=== PATIENT | female | born 1980 | race Caucasian/White ===

== ENCOUNTER 2024-11-06 21:00 | Emergency (ER) | payer OTHER, SELFPAY ==
--- OUTSIDE RECORDS SUMMARY | 2024-11-06 21:02 | XMS_ITS | Encounter Summary ---
Author Name [facility] Organization [facility] [place] Address [address] [place] [id number] Selected Encounter This section includes the information on record at [place] for the Encounter. Date/Time Encounter Type Encounter Description Reason Provider Source May 27, 2024 02:01 PM [facility] ASSMT/REASSESSM ENT CAREGIVER SUPPORT PROGRAM ICD-10-CM Z65.9 Problem related to unspecified psychosocial circumstances [facility] Encounter Template Text not used by [place] Assessments - Encounter Diagnoses This section includes the primary and secondary diagnoses documented for the Encounter. Date/Time Primary/Secondary Diagnosis Diagnosis Name Provider Source May 28, 2024 08:14 AM PRIMARY Problem related to unspecified psychosocial circumstances [facility] Encounter Notes: All associated encounter notes This section contains the clinical notes associated to the Encounter. Date/Time Encounter Note(s) Provider Source May 27, 2024 02:01 PM CAREGIVER CERTIFIC ATE: [facility] CAREGIVER STANDARD TITLE: CAREGIVER CERTIFICATE DATE OF NOTE: MAY 27, 2024@14:01 ENTRY DATE: MAY 27, 2024@14:59:55 AUTHOR: STAR SILVESTRE EXP COSIGNER: URGENCY: STATUS: COMPLETED This Family Caregiver is enrolled in the [facility] Program of Comprehensive Assistance for Family Caregivers (PCAFC). While enrolled in the PCAFC, wellness contacts are required and must review the Veterans well-being, adequacy of personal care services being provided by the Family Caregiver(s), and the well-being of the Family Caregiver(s). This wellness contact will occur at a minimum of once every 120 days, and at least one visit must occur in the eligible Veterans home on an annual basis. Date of Visit: 05/28/24 Length of Visit: 50 minutes (15 minutes of which was spent waiting for dyad to connect to VVC) Dx treated: Problem Related to unspecified Psychosocial Circumstances Full Name (last, first): GENIE ANN Date of : October Method of contact: VVC/Telehealth Caregiver contact details: Best contact number for backup/emergency communication with caregiver (required): Caregiver location during visit: Home address: [address] [place] [address] [address] [facility] [id number] Others present for visit with caregivers consent: Name: Cuate Ann - Caregiver confirms location is private and safe for visit. Yes Visit conducted by clinical video telehealth: Yes Caregiver verbal consent obtained. Yes Location/emergency number confirmed. Yes CAREGIVER INFORMATION The caregiver is a: Primary Family Caregiver Caregiver is providing care to: Name: Cuate dinh Does the caregiver live with the [place]? Yes Have there been any changes to the caregivers address, telephone number or e-mail address? No Is caregivers contact information in electronic health record and the Caregiver Support Program IT system current? Yes CAREGIVER ASSESSMENT How has your physical/mental/emotional health been lately? Have there been any changes (falls, ER visits, hospitalizations)? Details: Caregiver reports stability with her health. She reports no falls, ER visits, or hospitalizations since last wellness. 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 What current challenges or stressors do you have, if any? Details: Caregiver previously reported stressor of her children who are each dealing with their own mental health and behavior/coming of age concerns has improved. She continues to support her daughter in preparing to have a baby in June. Caregiver stated she will be staying with her daughter off and on for the first 12 weeks. A new stressor is that the [place]'s grandpa and her father whom she has a strained relationship is on hospice and expected to soon. Because of the status of their relationship, she stated it's stressful to know if she should call or how to process his dying. Overall, Caregiver stated I feel like I am carrying everyone else's' bags, but I didn't pack a pair of socks or pack for my own needs. I know it sounds like caregiver burnout, but part of it is just being a and mom. (It's a challenge) to balance everything and motivate (my daughter and ). ERICKA REYES encouraged Caregiver to prioritize her own wellbeing and self-care. How are you coping with these issues? (discuss coping skills and support systems as appropriate, consider referral to mental health) Details: Caregiver continues to cope with her stress by practicing deep breathing, stretching, and going to the local gym to [id number]/week. This is my time. She notes working out gives her energy to do all the other things she needs to do, like cleaning their home. Caregiver stated going back to school is a coping strategy and something she feels she is doing just for herself. Do you feel comfortable and safe in your home environment? Yes What additional supports do you need to care for the [place], if any? (discuss respite services as appropriate) Details: Nothing specific identified. Caregiver inquired about the pause status with legacy participants. Discussed next steps are still unknown at this time, but continuing to do wellnesses every 120 days and remaining in the program through 03/25/25. How can the Caregiver Support Program support you? What goals/needs can we assist you with? Details: Caregiver denied needing support from CSP. I know what you offer and (I have the skills) I just need to implement them. It's exhausting to help him when I have to try in such a way that he doesn't know I'm helping. SUMMARY OF VISIT/ACTION TAKEN Details: Today this SW met with the and caregiver via [facility] for the wellness contact visit. She reports no recent falls, ER visits, or hospitalizations since last wellness. 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 Overall, Caregiver stated I feel like I am carrying everyone else's' bags, but I didn't pack a pair of socks or pack for my own needs. I know it sounds like caregiver burnout, but part of it is just being a and mom. (It's a challenge) to balance everything and motivate (my daughter and [place]). ERICKA REYES encouraged Caregiver to prioritize her own wellbeing and self-care. Caregiver denied needing support from CSP. Referrals: (check all that apply) __ CSL Education Calls __ [facility] __ Building Better Caregivers __ Caregivers FIRST __ Community Caregiver Support Group __ [place] Caregiver Support Group __ [facility] Mental [facility] __ Caregiver Health and Wellbeing Coaching __ Peer Support Mentoring __ Keila Text __ Financial planning assistance __ Legal assistance __ Advance Care Planning Forms __ Other: Respite /es/ [facility] Director And Professor Signed: 05/28/2024 08:15 [facility]
--- OUTSIDE RECORDS SUMMARY | 2024-11-06 21:03 | XMS_ITS | Clinical Summary ---
Author Organization [facility] Address [address] [address] Phone Care Team Providers Care Enterprise Project Manager Name Role Phone Unavailable Primary Care Provider Unavailabl e Allergies No known active allergies Medications Multiple Vitamin (MULTIVITAMIN) tablet Take 1 Tab by mouth one time a day. Active Camphor (JOINTFLEX EX) Apply topically. Active acetaminophen (TYLENOL) 325 MG tablet Take 650 mg by mouth every six hours as needed for Pain. Limit acetaminophen to 4000 mg per day from all sources. Active ibuprofen (MOTRIN) 800 MG tablet Take 800 mg by mouth every eight hours as needed for Pain. Administer with food. Active Social History Tobacco Use Types Packs/Day Years Used Date Smoking Tobacco: Never Smokeless Tobacco: Never Alcohol Use Standard Drinks/Week Comments No 0 (1 standard drink = 0.6 oz pur e alcohol) Comments No Sex and Gender Information Value Date Recorded Sex Assigned at Not on file Legal Sex Female 1:45 PM CDT Gender Identity Not on file Sexual Orientation Not on file Obstetrics History Last Filed Vital Signs Vital Sign Reading Time Taken Comments Blood Pressure 137/97 03/28/2017 11:10 AM CDT Pulse 89 03/28/2017 11:10 AM CDT Temperature 36.8 C (98.2 F) 03/28/2017 11:10 AM CDT Respiratory Rate 16 03/28/2017 11:10 AM CDT Oxygen Saturation 97% 03/28/2017 11:10 AM CDT Inhaled Oxygen Concentration - - Weight 72.6 kg (160 lb) 03/28/2017 11:10 AM CDT Height 165.1 cm (5' 5) 03/28/2017 11:10 AM CDT Body Mass Index 26.63 03/28/2017 11:10 AM CDT Plan of Treatment Not on file Insurance [facility] [place] [address] [facility]
--- OUTSIDE RECORDS SUMMARY | 2024-11-06 21:03 | XMS_ITS | Clinical Summary ---
Author Organization [facility] Address [address] [place] [id number] Care Team Providers Care Tree Doctor Name Role Phone No Ref-Primary, Physician Primary Care Provider Kim Peralta CN Unavailable Leta Valadez PA-C Unavailable Rubi Erickson PA-C Unavailable [phone] Allergies No known active allergies Medications aspirin-acetamin ophen-caffeine (EXCEDRIN MIGRAINE) 250-250-65 MG tablet Take 2 tablets by mouth Active rizatriptan (MAXALT-REMEDIAL PROJECT MANAGER) 10 MG ODTIndications:M igraine without aura and without status migrainosus, not intractable Take 1 tablet (10 mg) by mouth at onset of headache for migraine May repeat in 2 hours. Max 3 tablets/24 hours. 10 tablet 1 4 Active progesterone (PROMETRIUM) 100 MG capsuleIndicatio ns:Perimenopause Take 1 capsule (100 mg) by mouth at bedtime 60 capsule 4 4 Active cyclobenzaprine (FLEXERIL) 10 MG tabletIndication s:Neck pain TAKE 1 TABLET BY MOUTH 3 TIMES DAILY NEEDED FOR MUSCLE SPASMS 30 tablet 4 Active Active Problems No known active problems Immunizations Immunization Administration Dates Next Due TDAP (Adacel,Boostrix) 12/24/2022 Family History Medical History Relation Comments Colon Cancer Father Breast Cancer Mother Relation Status Comments Father Mother Social History Tobacco Use Types Packs/Day Years Used Date Smoking Tobacco: Never Passive Smoke Exposure: Never Smokeless Tobacco: Never Tobacco Cessation:Counseling Given: No Alcohol Use Standard Drinks/Week Comments Not Currently 0 (1 standard drink = 0.6 oz pur e alcohol) PHQ-2 Answer Date Recorded PHQ-2 Score 0 08/31/2023 Adolescent Education Answer Date Record ed Getting School Help Needed Not on file 03/18 Food Insecurity Answer Date Recorded Within the past 12 months, d id you worry that your food would run out before you got money to buy more? No 08/15/2023 Within the past 12 months, d id the food you bought just not last and you didn t have money to get more? No 08/15/2023 Housing Stability Answer Date Recorded Do you have housing? (Radha g is defined as stable permanent housing and does not include staying outside in a car, in a tent, in an abandoned building, in an overnight penitentiary, or couch-surfing.) Yes 08/15/2023 Are you worried about losing your housing? No 08/15/2023 Financial Resource Strain Answer Date R ecorded Within the past 12 months, h ave you or your family members you live with been unable to get utilities (heat, electricity) when it was really needed? No 08/15/2023 Transportation Needs Answer Date Record ed Within the past 12 months, h as lack of transportation kept you from medical appointments, getting your medicines, non-medical meetings or appointments, work, or from getting things that you need? No 08/15/2023 Comments No Sex and Gender Information Value Date Recorded Sex Assigned at Not on file Legal Sex Female 1:12 PM SAUSAGE TIER Gender Identity Not on file Sexual Orientation Not on file Last Filed Vital Signs Vital Sign Reading Time Taken Comments Blood Pressure 128/88 09/12/2023 1:54 PM CDT Pulse 77 09/12/2023 1:54 PM CDT Temperature 36.6 C (97.9 F) 08/15/2023 4:35 PM SAUSAGE TIER Respiratory Rate 16 08/15/2023 4:35 PM SAUSAGE TIER Oxygen Saturation 98% 09/12/2023 1:54 PM CDT Inhaled Oxygen Concentration - - Weight 88 kg (194 lb) 09/12/2023 1:54 PM CDT Height 165.1 cm (5' 5) 09/12/2023 1:54 PM CDT Body Mass Index 32.28 09/12/2023 1:54 PM CDT Plan of Treatment Health Maintenance Due Date Last Done Comments ADVANCE CARE PLANNING 1982 ANNUAL REVIEW OF HM ORDERS 1982 HIV SCREENING 1997 HEPATITIS C SCREENING 2000 HEPATITIS B IMMUNIZATION (1 of 3 - 19+ 3-dose series) 2001 COVID-19 Vaccine (2 - 2023-2 5 season) 2024 12/17/2020 PHQ-2 (once per calendar year) 2024 08/31/2023, 08/31/2023, 08/15/2023 YEARLY PREVENTIVE VISIT 08/30/2024 08/31/2023 INFLUENZA VACCINE (Season Ended) 2025 MAMMO SCREENING 08/01/2025 08/01/2023 DIABETES SCREENING 08/30/2026 08/31/2023 HPV TEST 08/30/2028 08/31/2023 LIPID 08/30/2028 08/31/2023 PAP 08/30/2028 08/31/2023, 09/15/2005 ZOSTER IMMUNIZATION (1 of 2) 2032 DTAP/TDAP/TD IMMUNIZATION (2 - Td or Tdap) 12/24/2032 12/24/2022 HPV IMMUNIZATION Aged Out No longer e ligible based on patient's age to complete this topic MENINGITIS IMMUNIZATION Aged Out No l onger eligible based on patient's age to complete this topic Pneumococcal Vaccine: Pediatrics (0 to 5 Years) and At-Risk Patients (6 to 49 Years) Aged Out No longer eligible b ased on patient's age to complete this topic Procedures Procedure Name Priority Date/Time Associated Diagnosis Comments COMPREHENSIVE METABOLIC PANEL Routine 08/31/2023 4:08 PM SAUSAGE TIER Annual physical exam LIPID REFLEX TO DIRECT LDL PANEL Routine 08/31/2023 4:08 PM SAUSAGE TIER Annual physical exam GYNECOLOGIC CYTOLOGY Routine 08/31/2023 3:47 PM SAUSAGE TIER Cervical cancer screening HPV HIGH RISK TYPES DNA CERVICAL Routine 08/31/2023 3:47 PM SAUSAGE TIER Cervical cancer screening MA SCREENING BILATERAL W/ DAVID Routine 08/01/2023 11:22 AM SAUSAGE TIER Visit for screening mammogram from Last 3 Months or Most Recently Relevant to Health Maintenance Results * (ABNORMAL) Lipid panel reflex to direct LDL Non-fasting (08/31/2023 4:08 PM SAUSAGE TIER) Cholesterol 170 <200 mg/dL 09/01/2023 3:44 PM SAUSAGE TIER [facility] Triglycerides 160(H) <150 mg/dL 09/01/2023 3:44 PM SAUSAGE TIER [facility] Direct Measure HDL 53 >=50 mg/dL 09/01/2023 3:44 PM SAUSAGE TIER [facility] LDL Cholesterol Calculated 85 <=100 mg/dL 09/01/2023 3:44 PM SAUSAGE TIER [facility] Non HDL Cholesterol 117 <130 mg/dL 09/01/2023 3:44 PM SAUSAGE TIER [facility] Patient Fasting > 8hrs? No 09/01/2023 3:44 PM SAUSAGE TIER [facility] Blood BLOOD SPECIMEN / Unknown Venipuncture / Unknown 08/31/2023 4:08 PM SAUSAGE TIER 08/31/2023 4:08 PM SAUSAGE TIER Narrative [facility] - 09/01/2023 3:44 PM SAUSAGE TIER Cholesterol Desirable: <200 mg/dL Triglycerides Normal: Less than 150 mg/dL Borderline High: 150-199 mg/dL High: 200-499 mg/dL Very High: Greater than or equal to 500 mg/dL Direct Measure HDL Female: Greater than or equal to 50 mg/dL Male: Greater than or equal to 40 mg/dL LDL Cholesterol Desirable: <100mg/dL Above Desirable: 100-129 mg/dL Borderline High: 130-159 mg/dL High: 160-189 mg/dL Very High: >= 190 mg/dL Non HDL Cholesterol Desirable: 130 mg/dL Above Desirable: 130-159 mg/dL Borderline High: 160-189 mg/dL High: 190-219 mg/dL Very High: Greater than or equal to 220 mg/dL us Kim Peralta [facility] - BLOOD ORDERABLES Final Result [facility] [address] [facility], [address] [place] [address], [facility] [phone] * Comprehensive metabolic panel (BMP + Alb, Alk Phos, ALT, AST, Total. Bili, TP) (08/31/2023 4:08 PM SAUSAGE TIER) Sodium 139 135 - 145 mmol/L 09/01/2023 3:44 PM SAUSAGE TIER [facility] Comment:Reference intervals for this test were updated on 03/21/2023 to more accurately reflect our healthy population. There may be differences in the flagging of prior results with similar values performed with this method. Interpretation of those prior results can be made in the context of the updated reference intervals. Potassium 4.2 3.4 - 5.3 mmol/L 09/01/2023 3:44 PM SAUSAGE TIER [facility] Carbon Dioxide (CO2) 25 22 - 29 mmol/L 09/01/2023 3:44 PM SAUSAGE TIER [facility] Anion Gap 10 7 - 15 mmol/L 09/01/2023 3:44 PM SAUSAGE TIER [facility] Urea Nitrogen 19.7 6.0 - 20.0 mg/dL 09/01/2023 3:44 PM SAUSAGE TIER [facility] Creatinine 0.82 0.51 - 0.95 mg/dL 09/01/2023 3:44 PM SAUSAGE TIER [facility] GFR Estimate >90 >60 mL/min/1. 73m2 09/01/2023 3:44 PM SAUSAGE TIER [facility] Calcium 9.7 8.6 - 10.0 mg/dL 09/01/2023 3:44 PM SAUSAGE TIER [facility] Chloride 104 98 - 107 mmol/L 09/01/2023 3:44 PM SAUSAGE TIER [facility] Glucose 85 70 - 99 mg/dL 09/01/2023 3:44 PM SAUSAGE TIER [facility] Alkaline Phosphatase 67 40 - 150 U/L 09/01/2023 3:44 PM SAUSAGE TIER [facility] Comment:Reference intervals for this test were updated on 05/09/2023 to more accurately reflect our healthy population. There may be differences in the flagging of prior results with similar values performed with this method. Interpretation of those prior results can be made in the context of the updated reference intervals. AST 21 0 - 45 U/L 09/01/2023 3:44 PM SAUSAGE TIER [facility] Comment:Reference intervals for this test were updated on 12/05/2022 to more accurately reflect our healthy population. There may be differences in the flagging of prior results with similar values performed with this method. Interpretation of those prior results can be made in the context of the updated reference intervals. ALT 20 0 - 50 U/L 09/01/2023 3:44 PM SAUSAGE TIER [facility] Comment:Reference intervals for this test were updated on 12/05/2022 to more accurately reflect our healthy population. There may be differences in the flagging of prior results with similar values performed with this method. Interpretation of those prior results can be made in the context of the updated reference intervals. Protein Total 7.0 6.4 - 8.3 g/dL 09/01/2023 3:44 PM SAUSAGE TIER [facility] Albumin 4.7 3.5 - 5.2 g/dL 09/01/2023 3:44 PM SAUSAGE TIER [facility] Bilirubin Total 0.3 <=1.2 mg/dL 09/01/2023 3:44 PM SAUSAGE TIER [facility] Blood BLOOD SPECIMEN / Unknown Venipuncture / Unknown 08/31/2023 4:08 PM SAUSAGE TIER 08/31/2023 4:08 PM SAUSAGE TIER us Kim Peralta [facility] - BLOOD ORDERABLES Final Result [facility] [address] [facility], [address] [id number] [phone] * Pap screen with HPV - recommended age 30 - 65 years (08/31/2023 3:47 PM SAUSAGE TIER) Interpretation Negative for Intraepithelial Lesion or Malignancy (NILM) 09/04/2023 12:58 PM CDT [facility] Comment Papanicolaou Test Limitations: Cervical cytology is a screening test with limited sensitivity, and regular screening is critical for cancer prevention. Pap tests are primarily effective for the diagnosis/prevent ion of squamous cell carcinoma, not adenocarcinoma or other cancers. 09/04/2023 12:58 PM CDT [facility] Specimen Adequacy Satisfactory for evaluation, endocervical/braden sformation zone component absent 09/04/2023 12:58 PM CDT [facility] Clinical Information none 09/04/2023 12:58 PM CDT [facility] Reflex Testing Yes regardless of result 09/04/2023 12:58 PM CDT [facility] Previous Abnormal? No 09/04/2023 12:58 PM CDT [facility] Performing Labs The technical component of this testing was completed at [facility] 09/04/2023 12:58 PM CDT [facility] Brushing CERVIX UTERI STRUCTURE / Unknown Non-blood Collection / Unknown 08/31/2023 3:47 PM SAUSAGE TIER 08/31/2023 4:37 PM SAUSAGE TIER us Kim Peralta CNM LAB - BEAKER AP Final R esult [facility] Specialty Lab [address] [facility], [address] [place] [phone] * HPV High Risk Types DNA Cervical (08/31/2023 3:47 PM SAUSAGE TIER) Other HR HPV Negative Negative 09/06/2023 2:30 PM CDT [facility] HPV16 DNA Negative Negative 09/06/2023 2:30 PM CDT [facility] HPV18 DNA Negative Negative 09/06/2023 2:30 PM CDT [facility] FINAL DIAGNOSIS This patient's sample is negative for HPV DNA. This test was developed and its performance characteristics determined by the [facility], [facility]. It has not been cleared or approved by the FDA. The laboratory is regulated under CLIA as qualified to perform high-complexity testing. This test is used for clinical purposes. It should not be regarded as investigational or for research. METHODOLOGY: The Baljinder Prashanth 4800 system uses automated extraction, simultaneous amplification of HPV (L1 region) and beta-globin, followed by real time detection of fluorescent labeled HPV and beta globin using specific oligonucleotide probes. The test specifically identifies types HPV 16 DNA and HPV 18 DNA while concurrently detecting the rest of the high risk types (31, 33, 35, 39, 45, 51, 52, 56, 58, 59, 66 or 68). COMMENTS: This test is not intended for use as a screening device for woman under age 30 with normal cervical cytology. Results should be correlated with cytologic and histologic findings. Close clinical followup is recommended. 09/06/2023 2:30 PM CDT [facility] Brushing CERVIX UTERI STRUCTURE / Unknown Non-blood Collection / Unknown 08/31/2023 3:47 PM SAUSAGE TIER 09/05/2023 8:24 AM CDT us Kim Peralta [facility] - BLOOD ORDERABLES Final Result [facility] Molecular Diagnostics [address] [facility], [address] [place] [phone] * MA Screen Bilateral w/David (08/01/2023 11:22 AM SAUSAGE TIER) Anatomical Region Laterality Modality Breast Bilateral Mammography Impressions 08/02/2023 7:32 AM SAUSAGE TIER IMPRESSION: ACR BI-RADS Category 1: Negative BREAST CANCER SCREENING RECOMMENDATION: Routine yearly mammography beginning at age 40 or as discussed with your provider. The results and recommendations of this examination will be communicated to the patient. Cesar Martinez MD Narrative 08/02/2023 7:32 AM SAUSAGE TIER BILATERAL FULL FIELD DIGITAL SCREENING MAMMOGRAM WITH TOMOSYNTHESIS Performed on: 08/01/23 No comparisons were made when reading this study. Technique: This study was evaluated with the assistance of Computer-Aided Detection. Breast Tomosynthesis was used in interpretation. Findings: The breasts are heterogeneously dense, which may obscure small masses. There is no radiographic evidence of malignancy. us Referred Self MD [facility] ORDERABLES [place] l Result from Last 3 Months or Most Recently Relevant to Health Maintenance Insurance [employer] [facility] Care Teams Tree Doctor Relationship Specialty Start Date End Date No Ref-Primary, Physician PCP - General 08/12/20 Kim Peralta CNM [address] [address] Assigned OBGYN Provider 09/08/23 Leta Valadez PA-C [address] [place] [address] Assigned PCP 09/16/23 Rubi Erickson, AUGUSTINE [address] [facility] [place] [address] Assigned Neuroscience Provider 10/17/23
--- OUTSIDE RECORDS SUMMARY | 2024-11-06 21:03 | XMS_ITS | Clinical Summary ---
Author Organization [email or web address] Address [address] [place] [id number] Care Team Providers Care Collar Tailor Name Role Phone Pcp, No Primary Care Provider Unavailabl e Allergies Active Allergy Reactions Criticality Noted Date Comments Latex *Unknown - Childhood Rxn 04/09/2021 Medications acetaminophen (TYLENOL) 325 mg tablet Take 650 mg by mouth every 6 hours if needed. Active progesterone micronized (PROMETRIUM) 100 mg capsule 4 Active aspirin-acetaminoph en-caffeine (EXCEDRIN EX STR) 250-250-65 mg Take 2 Tablets by mouth. Active rizatriptan (MAXALT MACHINIST) 10 mg disintegrating tabletIndications:M igraine syndrome Take 1 Tablet (10 mg) by mouth 2 times daily if needed for Migraine. Give at minimum 2hrs apart. Max Dose: 30mg per 24hrs. 10 Tablet 4 Active fluticasone (50 mcg per actuation) nasal solution (FLONASE)Indication s:Sinusitis, unspecified chronicity, unspecified location Inhale 2 Sprays in both nostrils once daily. 16 g 4 Active Active Problems No known active problems Immunizations Immunization Administration Dates Next Due Tdap 12/24/2022 Social History Tobacco Use Types Packs/Day Years Used Date Smoking Tobacco: Never Smokeless Tobacco: Never Alcohol Use Standard Drinks/Week Comments Yes 1 (1 standard drink = 0.6 oz pur e alcohol) Social Connections Answer Date Recorded Frequency of Communication with Friends and Fami ly Not on file 09/07/2021 Comments No Sex and Gender Information Value Date Recorded Sex Assigned at Not on file Legal Sex Female 4:06 PM [employer] Gender Identity Not on file Sexual Orientation Not on file Obstetrics History Last Filed Vital Signs Vital Sign Reading Time Taken Comments Blood Pressure 143/78 05/06/2024 10:01 AM [employer] Pulse 80 05/06/2024 10:01 AM [employer] Temperature 36.4 C (97.6 F) 05/06/2024 10:01 AM [employer] Respiratory Rate 14 05/06/2024 10:01 AM [employer] Oxygen Saturation 100% 05/06/2024 10:01 AM [employer] Inhaled Oxygen Concentration - - Weight 72.2 kg (159 lb 3.2 oz) 05/06/2024 10:01 AM [employer] Height - - Body Mass Index - - Plan of Treatment Health Maintenance Due Date Last Done Comments Depression screening for age 12+ 1994 HIV for age 15-65 1997 BMI (ht and wt on same day) for age 18+ 2000 Hepatitis C screening for ag e 18-79 2000 Pap test for age 21-65 11/19/2003 COVID-19 vaccine series ( season) 2024 12/17/2020 Influenza Vaccine (Season Ended) 2025 Tetanus booster 12/24/2032 12/24/2022 Tdap Completed 12/24/2022 Pneumococcal series for age 6-49 Aged Out No longer eligible based on patient's age to complete this topic Care Teams Collar Tailor Relationship Specialty Start Date End Date Pcp, No . PCP - General 05/25/23
--- OUTSIDE RECORDS SUMMARY | 2024-11-06 21:03 | XMS_ITS | Encounter Summary ---
Author Name [facility] Organization [facility] Address [address] [place] [address] Selected Encounter This section includes the information on record at [place] for the Encounter. Date/Time Encounter Type Encounter Description Reason Provider Source Aug 21, 2024 12:30 PM PSYCH DIAGNOSTIC EVALUATION [facility] ICD-10-CM Z65.9 Problem related to unspecified psychosocial circumstances STAR SILVESTRE E Encounter Template Text not used by [place] Assessments - Encounter Diagnoses This section includes the primary and secondary diagnoses documented for the Encounter. Date/Time Primary/Secondary Diagnosis Diagnosis Name Provider Source Aug 22, 2024 02:39 PM PRIMARY Problem related to unspecified psychosocial circumstances STAR SILVESTRE [facility] Encounter Notes: All associated encounter notes This section contains the clinical notes associated to the Encounter. Date/Time Encounter Note(s) Provider Source Aug 21, 2024 12:30 PM CAREGIVER CERTIFIC ATE: LOCAL TITLE: CSP [facility] WELLNESS CONTACT CAREGIVER STANDARD TITLE: CAREGIVER CERTIFICATE DATE OF NOTE: AUG 21, 2024@12:30 ENTRY DATE: AUG 21, 2024@15:34:14 AUTHOR: STAR SILVESTRE EXP COSIGNER: URGENCY: STATUS: COMPLETED Caregiver Support Program [facility] Wellness Contact Caregiver This Family Caregiver is enrolled in [facility] Program of Comprehensive Assistance for Family Caregivers ([facility]). While enrolled in [facility], wellness contacts review the 's well-being, adequacy of personal care services being provided by the Family Caregiver(s), and the well-being of the Family Caregiver(s). Wellness contacts occur at a minimum of once every 120 days, and at least one visit must occur in the eligible 's home on an annual basis. Date of visit: Jul Length of visit: 65 minutes Dx treated: Problem Related to unspecified Psychosocial Circumstances The Caregiver was identified using the following lott identifiers: Full Name: GENIE ANN Date of : [birth year] Full Address[address] [address] [place], [place] [address], [place] [address] Phone #: Email address: [email or web address] Is the above contact information in the electronic health record and the Caregiver Support Program IT system, correct? Yes Reason for contact: Routine (120-day contact) Method of contact: In-Home CAREGIVER INFORMATION The caregiver is a: Primary Family Caregiver Caregiver is providing care to: Name: Cuate Ann The caregiver lives with the [place]. CAREGIVER ASSESSMENT How has your physical/mental/emotional health been lately? Details: Caregiver continues to pursue her degree in social work online at [employer]. 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 Caregiver was proud of herself for making the [employer] last semester. She continues to support her daughter after she had a baby in June. Caregiver had stated the plan was to stay with her daughter off and on for the first 12 weeks. She notes it has transitioned to more of the baby staying with her for a few days and then with her daughter for a few days/or the Caregiver stays there a few days. She has had about a month off of work to assist her daughter, but returns to work this coming Monday. She notes her coworkers have been very supportive to her during her leave. Mentally, she reports her dad did end up passing away, as he was dying at time of last wellness. She notes talking to her mom more since her dad's , but it still being challenging to navigate given her poor relationship with his parents. Have you experienced any changes (falls, ER visits, hospitalizations) and/or any concerns? No What is most important to you about your health and overall well-being? Details: To be healthy and to be adaptable. What goals or needs can we assist you with? Details: None identified today. Are there training topics or resources that you would like to learn more about? Details: Caregiver expressed gratitude that she has been able to receive training through her work on de-escalation, self-care and work burnout. However, she notes wanting to know more about How to switch up (our everyday)? and ways in which she can understand his emotions and tips for being the buffer between her kids and the [place]. Discussed potential national for Caregivers training that may be coming in the future as well as a current group being offered, titled the [place] [employer]. Discussed option to consider couple's counseling offered through the [facility] as well. Caregiver expressed interest and understanding. Caregiver also wondered about memory strategies to assist the . Educated on the role of an OT with this, but not interested in pursuing at this time. Do you have any legal or financial planning concerns? No Do you feel comfortable and safe in your home environment? Yes Do you have a personalized respite plan? Yes - Self-guided Details: Focusing on her school work, practicing deep breathing, stretching, and going to the local gym to [id number]/week. See annual respite template below for more info. SCREENING TOOLS [employer] [place] Interview [employer] [place] Interview (Caregiver burden scale), copyright 1990 by Harsha Ivy and Chanel Ivy, with permission to use. ZBI Screening score (range 0-16): Score is 7, which reflects low caregiver burden (scores of less than 8). 1. Do you feel that because of the time you spend with your relative that you do not have enough time for yourself? Sometimes 2. Do you feel stressed between caring for your relative and trying to meet other responsibilities (work/family)? Sometimes 3. Do you feel strained when you are around your relative? Sometimes 4. Do you feel uncertain about what to do about your relative? Rarely [facility] Staff provided information on the following resources and support: - Caregiver Support Line (CSL) Education Calls SUMMARY AND PLAN OF SUPPORT: Today's wellness contact took place in home. Caregiver continues to pursue her degree in social work online at [employer]. 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 Caregiver was proud of herself for making the [employer] last semester. She continues to support her daughter after she had a baby in June. She reports wanting to know several topics and education. Discussed potential national for Caregivers training that may be coming in the future as well as a current group being offered, titled the [employer]. Discussed option to consider couple's counseling offered through the [facility] as well. Caregiver expressed interest and understanding. Caregiver also wondered about memory strategies to assist the [place]. Educated on the role of an OT with this, but not interested in pursuing at this time. Caregiver is enrolled in: ____X____ Program of Comprehensive Assistance for Family Caregivers Program of General Caregiver Support Services Additional individuals providing input include: [place] Other: Support services currently in place to assist caregiver with 's care: (check all that apply) Homemaker and Home Health Aide Care Non-skilled Home Respite Skilled Home Respite [place] [facility] Institutional Respite ([facility]) [facility] Res[facility] ([facility]) Home Based Primary Care In-Home Palliative Care/Hospice Other: Has caregiver completed the Caregiver Respite Tool? Yes ___X__ No Details: Caregiver's Respite Goals: Details: None indicated at this time. Respite Currently Utilized: SELF GUIDED: (Definition: Caregiver builds activities into their daily routine that they find meaningful and brings them aliyah.) Self-Guided Respite Currently Utilized: __X__ Yes ____ No Details: Focusing on her school work, practicing deep breathing, stretching, and going to the local gym to [id number]/week. See annual respite template below for more info. INFORMAL: (Definition: Unpaid care offered by friends, family, and neighbors, or others.) Informal Respite Currently Utilized: Yes __X__ No Details: FORMAL: (Definition: A provision of short-term relief by paid care services provided either in a healthcare institution or by an individual or agency in the home. Services including skilled, non-skilled, and rn charge level care.) Formal Respite Currently Utilized: Yes __X__ No Details: Respite Contingency Plan: Does the caregiver have a backup plan in the event planned informal or formal respite becomes unavailable? ____ Yes- Details: ____ No- Details: Action Taken: __X__ None ____ Follow up with Primary Care ____ Referral to: ____ Provided Community/Non-VA Respite Information Details: ____ Other: __X__ Caregiver Declined Formal Respite Referral at this time ____ Caregiver Requests Formal Respite Referral // STAR SILVESTRE Parachute Repairer Signed: 08/22/2024 14:48 STAR SILVESTRE [facility]
--- OUTSIDE RECORDS SUMMARY | 2024-11-06 21:03 | XMS_ITS | Continuity of Care Document ---
Author Name [facility] Organization [facility] Care Team Providers Care [place] Press Operator Name Role Phone [facility] Unavailable Unavailable Problems Combined list of problems from Department of Defense and Veterans Affairs facilities. It does not include entries that were removed or entered in error. Problem Status Onset Date Problem Type Date of Resolution Comments Source Adjustment disorder with anxiety Active 019 Condition Unknown Organization Abscess of vulva Active Condition Unkno wn Organization Body dysmorphic disorder Active Condition Unknown Organization Cellulitis Active Condition Unknown Organization Cyst of ovary Active Condition Unknown Organization Depressive disorder Active Condition Unknown Organization Enlarged uterus Active Condition Unknow n Organization Gastroesophageal reflux disease with esophagitis Active Condition Unknown Organization Generalized anxiety disorder Active Condition Unknown Organization Headaches Active Condition Unknown Organization Iron deficiency anemia Active Condition Unknown Organization Migraine Active Condition Unknown Organization Strabismus Active Condition Unknown Organization - Preventative1 Active Condition BMI: 27.8
PAP/H PV Co-Testin02/16/16 WNL, HPV Negative Unknown Organization COMMON COLD Active Condition DoD Gynecologic Services Prescription Of Contraceptive Agents Inactive Condition DoD visit for: administrative purpose Inactive Condition reviewed pt consult DoD VERTIGO Active Condition DoD abdominal pain in the central upper belly (epigastric) Inactive Condition Spoke wit h patient, pain improved but still present intermittently . U/S ordtered, f/u her after complete. DoD midback pain Active Condition 24 yo f emale with mid backand epigastric pain.Plan - DDx includes viral syndrome, PUD, emi wheeler tear, pancreatitis, splenomegaly secondary to mono, etc... Will check labs as below (in addition to TSH), and start on Aciphex. F/U is prn and depen DoD Cerv Pap (+) Low Grade Squamous Intraepithelial Lesion Active Condition DoD visit for: exam Inactive Condition DoD Cervical High Risk Human Papilloma Virus DNA Test Active Condition DoD Abnormal Pap Smear: ASCUS Favor Dysplasia Active Condition colpo done no bx done b/c - d/w dr. disla - as he did nob pap per pt acct in regards to lesion/polyp - pt prefers to not have bx now while and he agreed this was safe/okay - rec pp pap/colpo with bx and excision at that time.f/u ins DoD Pain in right wrist Active Condition DoD FINGER SPRAIN RIGHT INDEX FINGER MCP Inactive Condition DoD joint pain, localized in the right wrist Active Condition DoD pain in the hands Active Condition DoD cough Active Condition DoD abdominal pain in the right lower belly (RLQ) Active Condition DoD CONJUNCTIVITIS CHRONIC ALLERGIC Active Condition DoD ESOPHAGITIS CHRONIC REFLUX Active Condition DoD Preventive Medicine Establ. Patient Checkup Adult 18-39 Inactive Condition DoD DRY EYE SYNDROME Active Condition DoD PEDICULOSIS CAPITIS Inactive Condition DoD neck pain Active Condition DoD OTITIS MEDIA ACUTE SEROUS BOTH EARS Inactive Condition DoD DYSPAREUNIA Active Condition DoD WARTS PLANTAR Inactive Condition DoD excessive bleeding during period (menorrhagia) Active Condition DoD TRAPEZOID MUSCLE STRAIN Inactive Condition DoD DEPRESSION Active Condition DoD VAGINAL DISCHARGE Active Condition DoD ESOPHAGEAL REFLUX Active Condition DoD OVERWEIGHT Active Condition DoD CHRONIC SINUSITIS - MAXILLARY Active Condition DoD ALLERGIC RHINITIS Active Condition DoD ANKLE SPRAIN Inactive Condition DoD ANKLE SPRAIN RIGHT Inactive Condition Do D Uterine Enlargement Active Condition DoD OVARIAN CYST Active Condition DoD BODY DYSMORPHIC DISORDER Active Condition DoD Observation For Suspected Condition Inactive Condition DoD pelvic pain Active Condition DoD visit for: issue repeat prescription Inactive Condition DoD CYSTITIS ACUTE Inactive Condition DoD feelings of urinary urgency Active Condition DoD DYSMENORRHEA Active Condition DoD changed sexual interest (libido): decreased Active Condition DoD AMBLYOPIA Active Condition DoD STRABISMUS Active Condition DoD PREMENSTRUAL DISORDER Active Condition DoD Thyroid Function Tests Nonspecific Abnormal Findings Active Condition DoD ABNORMAL WEIGHT GAIN Active Condition DoD PHARYNGITIS Active Condition DoD GENERALIZED ANXIETY DISORDER Active Condition DoD FEMALE PELVIC PAIN Active Condition DoD visit for: preoperative exam Active Condition DoD visit for: contraceptive surveillance Inactive Condition DoD Outpatient Physician Consultation Active Condition DoD MIGRAINE HEADACHE Active Condition DoD vaginal pain Active Condition DoD NORMAL ROUTINE HISTORY AND PHYSICAL - Active Condition DoD FALSE LABOR AFTER 37 WEEKS GESTATION Active Condition DoD NORMAL CHECKUP - THIRD TRIMESTER Inactive Condition DoD DECR MOVE AFFECTING CARE OF MOTHER - ANTEPARTUM CONDIT Active Condition DoD GESTATION EDEMA ANTEPARTUM CONDITION / PRIOR COMPLIC DELIV Active Condition DoD visit for: administrative purpose Inactive Condition DoD visit for: exam high-risk Inactive Condition DoD PREG THREATENED BUCK LABOR - ANTEPART COND OR PRIOR COMP DEL Active Condition DoD Patient Counseling: Inquiry & Counseling Inactive Condition DoD Supervision Of Normal Inactive Condition DoD MARGINAL PLACENTA PREVIA - ANTEPARTUM CONDITION / COMPLIC Inactive Condition DoD visit for: exam based on ultrasound Active Condition DoD NORMAL CHECKUP - SECOND TRIMESTER Inactive Condition DoD heartburn Active Condition DoD Supervision Of Normal First Inactive Condition DoD HYPEREMESIS GRAVIDARUM - ANTEPARTUM COND OR PRIOR COMP DELIV Active Condition DoD PREG COMPLICATIONS: ANTEPARTUM COND OR PRIOR COMP DELIVERY Active Condition DoD Patient Education Inactive Condition [facility] SECONDARY AMENORRHEA Active Condition [facility] ROUTINE GYNECOLOGICAL EXAM WITH CERVICAL PAP SMEAR Inactive Condition [facility] Cervical Pap Smear Active Condition [facility] visit for: screening exam malignant neoplasm breast Inactive Condition DoD Test Negative Inactive Condition DoD Gynecologic Services Contraceptive Management Inactive Condition DoD FATIGUE Active Condition No recent lab work. will check cbc, cmp, tsh for screening and fatigue work up DoD MENORRHAGIA Active Condition increase d bleeing, improved since starting Molly.- continue to monitor- needs WWE, told her to schedule with [facility] or gynecology DoD MYALGIA AND MYOSITIS Active Condition pain all over back and in neck and across iliac crests. Does not have tenderpoints on exam to diagnoses fibromyalgia, but complaints are similar to FMS. - cont working out daily- maintain good hydration DoD HEADACHE SYNDROMES Inactive Condition d aily headaches with worsening. She is not sure if she has ever been on elavil in the past. Suspect multiple types of headaches: tension, chronic daily headache, possible migraine- start elavil 50mg qhs- start midrin prn DoD URINARY TRACT INFECTION Inactive Condition DoD Oral Contraceptives Inactive Condition will give the patient a trial of Molly to see if she tolerates it better than Ortho-tricycle n [facility] Other Physical Therapy Inactive Condition DoD UPPER RESPIRATORY INFECTION Inactive Condition Viral in appearance and history. Sudafed and SY DM ordered in [facility]. Increase rest and fluids and f/u if no improvement in 3-5 days and sooner if condition worsens. [facility] SPONTANEOUS - COMPLETE Active Condition doing well following miscarriage; now resolved clinically and pt stablequant dropping quickly; overall reviewed status; will repeat test/exam in 4 weekspt to come in if bleeding heavy/pain/fev er DoD abdominal pain Active Condition DoD bleeding during Inactive Condition [facility] Gynecologic Service Prescrip Of Contracept Agent - Repeat Rx Active Condition [facility] IRON DEFICIENCY ANEMIA Active Condition [facility] visit for: screening exam Inactive Condition [facility] SINUSITIS ACUTE Inactive Condition [facility] Contraceptives Inactive Condition DoD CERVICALGIA Active Condition DoD headache Inactive Condition Pt has chr onic history of head aches that are not relileved with her current meds, physical therapy, massage and stretching. Plan for change of NSAID, use naproxen rather than motrin. Plan for MRI of brain for eval of possible organic cause of head aches. 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 Hernadez, who is just starting a at [facility]. I spoke with Dr. Salgado in ER who says he is familiar with this type of lesion. I had her go to the emergency room so that she could be evaluated there, as my experie DoD CELLULITIS OF THE LEFT ARM Inactive Condition DoD Patient Counseling: Active Condition DoD anxiety Active Condition DoD Diagnosis: ICD-10-CM Z65.9 Problem related to unspecified psychosocial circumstances Active Diagnosis [facility] Medications Combined list of outpatient medications from Department of Defense and Veterans Affairs facilities.Medications provided include 1) outpatient medications from the last 15 months, and 2) patient-reported medications. Medication Details Route Status Patient Instructions Prescription Expires Prescription Number Last Dispense Date Ordering Provider Order Date Order Qty Source azithromyci n 250 mg oral tablet 0 total refill(s ) Discont inued 03/12/20182017 No Facilit y Access CYCLOBENZAP RINE HCL (CYCLOBENZA HARJEET HCL), 10 MG, TABLET, ORAL, [employer], 500 ea. BOTTLE Active [id number] 4 2023 30 Pharmac y Data Transac tion Service Facilit y CYCLOBENZAP RINE HCL (CYCLOBENZA HARJEET HCL), 10 MG, TABLET, ORAL, [employer], 500 ea. BOTTLE Active [id number] 4 2023 30 Pharmac y Data Transac tion Service Facilit y multivitami n adult, oral tablet 1 tabs, Oral, Daily, Take one tablet by mouth daily as vitamin suppleme ntation, # 30 tabs, 0 total refill(s ), Maintena nce Oral (given by mouth) Discont inued 07/23/20182018 30.0 [facility] [place] Probiotic + Colostrum Oral, Daily, 0 total refill(s ), Maintena nce Oral (given by mouth) Discont inued 05/08/20182017 [facility] [place] Probiotic Formula 1 cap, Oral, Daily, Take one capsule by mouth daily with food while taking antibiot ics to lessen GI upset, # 30 cap, 0 total refill(s ), Maintena nce Oral (given by mouth) Discont inued 07/23/20182018 30.0 [facility] [place] Progesteron e ([employer]) 100 CAPSULE in 1 BOTTLE Cancele d [id number] 4 [id number] : 2023 0 Pharmac y Data Transac tion Service Facilit y Progesteron e ([employer]) 100 CAPSULE in 1 BOTTLE Cancele d [id number] 4 [id number] : 2023 0 Pharmac y Data Transac tion Service Facilit y Progesteron e ([employer]) 100 CAPSULE in 1 BOTTLE Cancele d [id number] 4 [id number] : 2023 0 Pharmac y Data Transac tion Service Facilit y Progesteron e ([employer]) 100 CAPSULE in 1 BOTTLE Cancele d [id number] 4 [id number] : 2023 0 Pharmac y Data Transac tion Service Facilit y Progesteron e ([employer]) 100 CAPSULE in 1 BOTTLE Cancele d [id number] 4 [id number] : 2023 0 Pharmac y Data Transac tion Service Facilit y Progesteron e ([employer]) 100 CAPSULE in 1 BOTTLE Cancele d [id number] 4 [id number] : 2023 0 Pharmac y Data Transac tion Service Facilit y Progesteron e ([employer]) 100 CAPSULE in 1 BOTTLE Active [id number] 09/04/19 2 4 2023 26 Pharmac y Data Transac tion Service Facilit y Progesteron e ([employer]) 100 CAPSULE in 1 BOTTLE Active [id number] 09/28/19 2 4 2023 60 Pharmac y Data Transac tion Service Facilit y Progesteron e ([employer]) 100 CAPSULE in 1 BOTTLE Active [id number] 10/23/19 2 4 2023 60 Pharmac y Data Transac tion Service Facilit y RIZATRIPTAN (RIZATRIPTA N BENZOATE), 10 MG, TAB RAPDIS, ORAL, [employer], 9 ea. BLIST PACK Active [id number] 4 2023 10 Pharmac y Data Transac tion Service Facilit y Therapeutic Multiple Vitamins oral tablet 1 tabs, Oral, Daily, Take one tablet by mouth daily as vitamin suppleme ntation, # 90 tabs, 3 total refill(s ), [facility] Oral (given by mouth) Ordered 9 2018 90.0 [facility] [place] Topamax 25 mg oral tablet See Instruct ions, Take 1 tablet Orally Daily x 2-3 days then bid for headache s, # 60 tabs, 1 total refill(s ), [email or web address] dispense (Rx) Ordered 9 2018 60.0 [facility] [place] topiramate 25 mg oral capsule 1 cap, Oral, As Directed , 1 po QHS. Titrate up by 25mg every week. Michaela l adverse SE's discusse d., # 60 cap, 0 total refill(s ), [facility] pharmacy dispense (Rx) Oral (given by mouth) Discont inued 05/08/20182017 60.0 [facility] [place] Vitamin B Complex with C, Folic Acid, Iron and Probiotics oral capsule 1 cap, Oral, Daily, Take one capsule daily between meals to improve absorpti on, # 30 cap, 3 total refill(s ), [facility] pharmacy dispense (Rx) Oral (given by mouth) Ordered 2018 30.0 [facility] [place] Allergies, Adverse Reactions, Alerts Combined list of allergies from Department of Defense and Veterans Affairs facilities. It does not include entries that were removed or entered in error. Substance Category Reaction Severity Reaction type Status Date Reported Comments Source Latex Allergy to substance Unknown Unknown [facility] Allergies Drug allergy (disorder) active 6 [facility] Immunizations Combined list of available immunizations from the Department of Defense and Veterans Affairs facilities. Immunization Series Date Given Administered By Site Reaction Lot Number CVX Code Drug Rent Collector Status Comments Source COVID-19 vaccine, vector-nr, rS-Ad26, PF, 0.5 mL 2020 JEANNINEEVERETTE () Not Given COVID-19 vaccine, vector-nr , rS-Ad26, PF, 0.5 mL [facility] Results Combined list of recent chemistry, hematology and other laboratory results from Department of Defense and Veterans Affairs, ranging from 15 months to all on record, depending upon the facility. Order Name Results Value Reference Range Date Interpretation Specimen Comments Source Urinalysi s UA Bili Negative (04/30/18 10:59 AM) 04/30 N [facility] [place] Urinalysi s UA pH 5.0 *NA* (04/30/18 10:59 AM) 04/30 [facility] [place] Urinalysi s UA Protein Negative (04/30/18 10:59 AM) 04/30 N [facility] [place] Urinalysi s UA Appear Clear (04/30/18 10:59 AM) 04/30 N [facility] [place] Urinalysi s UA Micro Ind? Indicated *ABN* (04/30/18 10:59 AM) 04/30 A [facility] [place] Urinalysi s UA Blood Small *ABN* (04/30/18 10:59 AM) 04/30 A [facility] [place] Urinalysi s UA Color Lt. Yellow (04/30/18 10:59 AM) 04/30 N [facility] [place] Urinalysi s UA Leuk Esterase Negative (04/30/18 10:59 AM) 04/30 N [facility] [place] Urinalysi s UA Ketones Negative (04/30/18 10:59 AM) 04/30 N [facility] [place] Urinalysi s UA Nitrite Negative (04/30/18 10:59 AM) 04/30 N [facility] [place] Urinalysi s UA Glucose Negative (04/30/18 10:59 AM) 04/30 N [facility] [place] Urinalysi s UA Urobilinoge n 0.2 (04/30/18 10:59 AM) 04/30 N [facility] [place] Urinalysi s UA Spec [place] 1.025 *NA* (04/30/18 10:59 AM) 04/30 [facility] [place] Urinalysi s UA Epi Squam 2-5 *ABN* (04/30/18 10:59 AM) 04/30 A [facility] [place] Urinalysi s UA WBC None Seen (04/30/18 10:59 AM) 04/30 N [facility] [place] Urinalysi s UA Bacteria Few *ABN* (04/30/18 10:59 AM) 04/30 A [facility] [place] Urinalysi s UA RBC 2-5 *ABN* (04/30/18 10:59 AM) 04/30 A [facility] [place] Infectiou s Disease Strep A, Rapid Neg (04/16/18 9:35 AM) 04/16 N 0125A-AM Jerry Rios Vital Signs Combined list of inpatient and outpatient Vital Signs from Department of Defense and Veterans Affairs, ranging from 12 months to all on record, depending upon the facility. Vital Sign Value Date Comments Source Systolic Blood Pressure 117 mm[Hg] 04/16/2018 16:09:00 [facility] Diastolic Blood Pressure 79 mm[Hg] 04/16/2018 16:09:00 [facility] Respiratory Rate 16 br/min 04/16/2018 16:09:00 [facility] Temperature Tympanic 36.6 Cata 04/16/2018 16:09:00 [facility] Peripheral Pulse Rate 68 bpm 04/16/2018 16:09:00 [facility] Mean Arterial Pressure, Calc 92 mm[Hg] 04/16/2018 16:09:00 [facility] Mean Arterial Pressure, Calc 99 mm[Hg] 03/13/2018 20:35:00 [facility] Systolic Blood Pressure 126 mm[Hg] 03/13/2018 20:35:00 [facility] Diastolic Blood Pressure 85 mm[Hg] 03/13/2018 20:35:00 [facility] Respiratory Rate 16 br/min 03/13/2018 20:35:00 [facility] Temperature Tympanic 36.6 Cata 03/13/2018 20:35:00 [facility] Peripheral Pulse Rate 62 bpm 03/13/2018 20:35:00 [facility] Peripheral Pulse Rate 66 bpm 04/19/2018 16:55:00 [facility] [place] Mean Arterial Pressure, Calc 90 mm[Hg] 04/19/2018 16:55:00 [facility] Jj palacios Temperature Tympanic 36.4 Cata 04/19/2018 16:55:00 [facility] [place] Systolic Blood Pressure 112 mm[Hg] 04/19/2018 16:55:00 [facility] [place] Diastolic Blood Pressure 79 mm[Hg] 04/19/2018 16:55:00 [facility] [place] Systolic Blood Pressure 126 mm[Hg] 03/12/2018 17:25:00 [facility] Diastolic Blood Pressure 85 mm[Hg] 03/12/2018 17:25:00 [facility] Respiratory Rate 15 br/min 03/12/2018 17:25:00 [facility] Mean Arterial Pressure, Calc 99 mm[Hg] 03/12/2018 17:25:00 [facility] Peripheral Pulse Rate 75 bpm 03/12/2018 17:25:00 [facility] Temperature Tympanic 36.5 Cata 05/08/2018 22:43:00 [facility] Peripheral Pulse Rate 61 bpm 05/08/2018 22:43:00 [facility] Respiratory Rate 19 br/min 05/08/2018 22:43:00 [facility] Systolic Blood Pressure 123 mm[Hg] 05/08/2018 22:43:00 [facility] Diastolic Blood Pressure 82 mm[Hg] 05/08/2018 22:43:00 [facility] Mean Arterial Pressure, Calc 96 mm[Hg] 05/08/2018 22:43:00 [facility] Respiratory Rate 18 br/min 04/30/2018 18:59:00 [facility] Temperature Tympanic 36.8 Cata 04/30/2018 18:59:00 [facility] Peripheral Pulse Rate 64 bpm 04/30/2018 18:59:00 [facility] Mean Arterial Pressure, Calc 91 mm[Hg] 04/30/2018 18:59:00 [facility] Systolic Blood Pressure 116 mm[Hg] 04/30/2018 18:59:00 [facility] Diastolic Blood Pressure 79 mm[Hg] 04/30/2018 18:59:00 [facility] Temperature Temporal 36.9 Cata 11/12/2018 17:38:00 [facility] Blood Pressure Manual Automatic 11/12/2018 17:38:00 [facility] Respiratory Rate 16 br/min 11/12/2018 17:38:00 [facility] Systolic Blood Pressure 136 mm[Hg] 11/12/2018 17:38:00 [facility] Diastolic Blood Pressure 90 mm[Hg] 11/12/2018 17:38:00 [facility] Mean Arterial Pressure, Calc 105 mm[Hg] 11/12/2018 17:38:00 [facility] Peripheral Pulse Rate 60 bpm 11/12/2018 17:38:00 [facility] Temperature Tympanic 36.9 Cata 07/23/2018 21:26:00 [facility] Peripheral Pulse Rate 72 bpm 07/23/2018 21:26:00 [facility] Systolic Blood Pressure 132 mm[Hg] 07/23/2018 21:26:00 [facility] Diastolic Blood Pressure 85 mm[Hg] 07/23/2018 21:26:00 [facility] Mean Arterial Pressure, Calc 101 mm[Hg] 07/23/2018 21:26:00 [facility] Respiratory Rate 18 br/min 07/23/2018 21:26:00 [facility] Encounters Combined list of: 1) Encounters from Department of Veterans Affairs facilities going backup to the last 18 months, not all VA inpatient encounters are included; 2) Encounters from the Department of Defense facilities going backup to 280 months. Location Location Details Encounter Type Encounter Number Reason For Visit Attending Provider ADM Date DC Date Status Disposition Source TOSHA Rogers([facility]) OUTPATIENT [id number] MICKIE Jacobo 06/29 Released w/o Limitations TOSHA Montanez([facility]) TOSHA Rogers([facility]) OUTPATIENT [id number] class BIRD VARGAS 09/29 Released w/o Limitations TOSHA Montanez([facility]) TOSHA Rogers([facility]) OUTPATIENT [id number] class BIRD VARGAS 10/06 Released w/o Limitations TOSHA Montanez([facility]) Valeriano [facility] TOSHA Wooten([facility]) OUTPATIENT [id number] class BIRD VARGAS 10/13 Released w/o Limitations Valeriano [facility] TOSHA Estrada([facility]) TOSHA Rogers([facility]) OUTPATIENT [id number] class BIRD VARGAS 10/20 Released w/o Limitations Valeriano [facility] TOSHA Estrada([facility]) Valeriano [facility] TOSHA Samson DIRECT TO [facility] FROM OTHER THAN ER OR [facility] [id number] MACHO RASCON 12/02 DISCHARGED HOME TOSHA Pina [facility] TOSHA Wooten([facility]) OUTPATIENT [id number] 6wp MEZADARREN L 01/18 Released w/o Limitations TOSHA Montanez([facility]) TOSHA Rogers([facility]) OUTPATIENT [id number] pain under rib cage KALEIGH BOATENG 05/05 Released w/o Limitations Val[place] [facility] TOSHA Rogers([facility]) TELE CONSULT [id number] Elevate d LFTs KALEIGH BOATENG 05/10 [facility] OUTPATIENT [id number] SANDRA EDWARDS 05/17 Released w/o Limitations [facility]OSHA Montanez([facility] TOSHA Rogers([facility]) TELE CONSULT [id number] U/S results ZECHARIAH WATKINS 05/26 [facility] TOSHA Rogers([facility]) TELE CONSULT [id number] pt would like to get refill on control pills-p t needs to start by monday DARREN MEZA 06/16 TOSHA Montanez([facility] TOSHA Rogers([facility]) OUTPATIENT [id number] congest ion and pain in ears ARMEN ADAME W 07/04 Released w/o Limitations [place] [facility]HA [facility] TOSHA Rogers([facility]) OUTPATIENT [id number] Anxiety CORTEZ VITALE 07/28 Released w/o Limitations TOSHA Montanez([facility]) TOSHA [facility]) OUTPATIENT [id number] PRATEEK LAUGHLIN 08/23 Released w/o Limitations [place] [facility] TOSHA Estrada([facility] TOSHA Rogers([facility]) OUTPATIENT [id number] Chills/ Nausea/ back and Neck aches ALFONZO, MARYA 09/05 Released w/o Limitations TOSHA Montanez([facility]) TOSHA Rogers([facility]) OUTPATIENT [id number] f/u on boils ALFONZO, MARYA 09/06 Released w/o Limitations TOSHA Montanez([facility]) TOSHA Rogers([facility]) OUTPATIENT [id number] groin ZECHARIAH Miles 09/06 Released w/o Limitations TOSHA Montanez([facility]) [facility]HA [facility] OUTPATIENT [id number] PRATEEK LAUGHLIN 09/06 Released w/o Limitations [place] [facility] TOSHA Estrada([facility] TOSHA Rogers([facility]) OUTPATIENT [id number] f/u boils ALFONZO, MARYA 09/08 Released w/o Limitations TOSHA Montanez([facility]) TOSHA Rogers([facility]) OUTPATIENT [id number] re pap (colpo) EVERETTE HERNADEZ 09/15 Released w/o Limitations TOSHA Montanez([facility] Cl) [facility] TELE CONSULT [id number] colpo results EVERETTE HERNADEZ 09/30 TOSHA Montanez([facility] TOSHA Rogers([facility]) OUTPATIENT [id number] ARMEN Bernal 01/17 Released w/o Limitations [facility] TOSHA Estrada([facility] Medicin e [facility]) [facility] OUTPATIENT [id number] PRATEEK LAUGHLIN 02/03 Released w/o Limitations [facility] TOSHA Estrada([facility] TOSHA Rogers([facility]) OUTPATIENT [id number] migrain pain and meds ARMEN ADAME W 02/14 Released w/o Limitations [facility] T[facility]HA Rogers([facility]) OUTPATIENT [id number] MARYA MEJÍA 05/02 Released w/o Limitations [facility] OUTPATIENT [id number] KAREY MOSER 05/06 Released w/o Limitations [facility] TOSHA Estrada([facility] TELE CONSULT [id number] pt needs refill on control NIKIAEVERETTE MORROW Toni 05/24 TOSHA Montanez([facility] OUTPATIENT [id number] NEVAEH RAYGOZA 06/20 Released w/o Limitations [facility] TOSHA Estrada([facility] TOSHA Rogers([facility]) OUTPATIENT [id number] MOOD SWINGS CORTEZ VITALE 08/07 Released w/o Limitations [facility] TOSHA Estrada([facility] Medicin e [facility]) TOSHA Rogers([facility]) OUTPATIENT [id number] f/u rx CORTEZ VITALE 08/16 Released w/o Limitations [facility] TOSHA Hankins([facility] Medicin e Clinic) TOSHA Rogers([facility]) OUTPATIENT [id number] F/U ON NECK AND HEAD PAIN MAUDE CATERINA Moreno 08/18 Released w/o Limitations [facility] TOSHA Estrada([facility] Medicin e Clinic) TOSHA Rogers([facility]) TELE CONSULT [id number] pt needs refill on control . pt was seen by us in novembe r. please call. SENTHIL GARCIA 09/04 TOSHA Montanez([facility]) [facility] OUTPATIENT [id number] KAREY MOSER 10/02 Released w/o Limitations [facility] Montanez[facility] TOSHA Rogers([facility]) OUTPATIENT [id number] walk-in EVERETTE HERNADEZ 10/04 Released w/o Limitations [facility] TOSHA Estrada([facility]) TOSHA Rogers([facility]) OUTPATIENT [id number] ALLERGI ES AND COLD SYMPTOM S CATERINA SANTORO Quita 10/25 Released w/o Limitations [facility] TOSHA Estrada([facility] Medicin [facility] Clinic) [facility] TOSHA Wooten([facility]) TELE CONSULT [id number] EXTERNA L PHYSICA L THERAPY RESULTS DYLAN MORAES 12/05 TOSHA Montanez([facility] Intern[facility] l Med Clinic) TOSHA Rogers([facility]) OUTPATIENT [id number] CHRONIC HEADACH ES JOSUE BETTENCOURT 02/02 Released w/o Limitations [facility] TOSHA Estrada([facility]Fl u [facility]) OTSHA Rogers([facility]) TELE CONSULT [id number] COURTES Y REFILL SEVERO TORO 02/07 [facility]HA Montanez([facility] OUTPATIENT [id number] PCM VISIT SEVERO TORO 02/09 Released w/o Limitations [facility]HA Montanez([facility] T[facility]HA [facility]) TELE CONSULT [id number] EXTERNA L PHYSICA L THERAPY RESULTS SEVERO TORO 02/28 TOSHA Montanez([facility] OUTPATIENT [id number] SANDRA EDWARDS 03/08 Released w/o Limitations [facility]HA Montanez[facility] TELE CONSULT [id number] med refill SEVERO TORO 06/29 T[facility]HA Montanez([facility] OUTPATIENT [id number] CORTEZ VITALE 08/10 Released w/o Limitations [facility]HA Montanez([facility] OUTPATIENT [id number] extreme headCATERINA Leblanc 08/15 Released w/o Limitations [facility] TOSHA Estrada([facility]HA Rogers[facility] OUTPATIENT [id number] f/u on headDYLAN Lowry 09/18 Released w/o Limitations [facility]HA Montanez([facility]HA Rogers[facility] TELE CONSULT [id number] Externa l Physica l Therapy Report DYLAN MORAES A 10/11 TOSHA Montanez([facility] Intern[facility] l Med [facility]) TOSHA Rogers([facility] Medicine [facility]) OUTPATIENT [id number] HCG TEST QUANG MCDANIELS Tori 10/25 Released w/o Limitations TOSHA Montanez([facility] Medicin e Clinic) TOSHA Rogers([facility] Internal [facility]) OUTPATIENT [id number] well woman exam/pa p DYLAN MORAES A 10/30 Released w/o Limitations TOSHA Montanez([facility] Intern[facility] l Med [facility]) TOSHA Rogers([facility] Internal [facility]) TELE CONSULT [id number] EXTERNA L PHYSICA L THERAPY REPORT DYLAN MORAES A 01/01 TOSHA Montanez([facility] Intern[facility] Med [facility]) TOSHA Rogers([facility] Internal [facility]) TELE CONSULT [id number] FYI DYLAN MORAES A 02/18 TOSHA Montanez([facility] Intern[facility] Med [facility]) TOSHA Rogers([facility]) OUTPATIENT [id number] OB INTAKE MIKHAIL FU D 02/25 Released w/o Limitations TOSHA Montanez([facility]) TOSHA Rogers([facility]) TELE CONSULT [id number] ABD PAIN MIKHAIL FU D 03/04 TOSHA Montanez([facility]) TOSHA Rogers([facility]) TELE CONSULT [id number] PT 8 WKS WOULD LIKE MEDICAT ION FOR NAUSEA GARCIA, SENTHIL ARY 03/10 TOSHA Montanez([facility]) TOSHA Rogers([facility]) OUTPATIENT [id number] NOB 10.1 WKS OMKAR WALKER LUIS A 03/21 Released w/o Limitations TOSHA Montanez([facility]) TOSHA Rogers([facility]) OUTPATIENT [id number] OMKAR REYNAGA LUIS A 04/16 Released w/o Limitations TOSHA Montanez([facility]) [facility] TELE CONSULT [id number] referal needed SEVERO TORO 04/24 TOSHA Montanez([facility] TOSHA Rogers([facility]) OUTPATIENT [id number] SENTHIL JEREZ ARY 05/15 Released w/o Limitations TOSHA Montanez([facility] TOSHA Rogers([facility]) TELE CONSULT [id number] pt 18 wks has questio ns. [phone] cell ROMÁN MARS 05/26 TOSHA Montanez([facility]) TOSHA Rogers([facility]) TELE CONSULT [id number] Externa l OB US Report SENTHIL GARCIA ARY 05/28 TOSHA Montanez([facility] TOSHA Rogers([facility]) TELE CONSULT [id number] SEE NOTE SENTHIL GARCIA ARY 06/11 TOSHA Montanez([facility]) [facility] TELE CONSULT [id number] Externa l Physica l Therapy Results SEVERO TORO 06/11 TOSHA Montanez([facility] TOSHA Rogers([facility]) TELE CONSULT [id number] PT 23 WKS HAS QUESTIO NS/CONC ERNS. CELL ROMÁN MARS 06/24 [facility] [facility] [employer] [place]([facility]) [facility] TOSHA Wooten([facility]) TELE CONSULT [id number] paper needed SEVERO TORO Fer 07/08 TOSHA Montanez([facility] TOSHA Rogers([facility]) OUTPATIENT [id number] OMKAR REYNAGA 08/07 Released w/o Limitations [employer] [employer] [employer] [place]([facility] TOSHA Rogers([facility]) OUTPATIENT [id number] pelvic pain HAYDEN GABRIEL 08/20 Released w/o Limitations TOSHA Montanez([facility]) TOSHA Rogers([facility]) OUTPATIENT [id number] walk in per provide r HAYDEN GABRIEL 08/21 Released w/o Limitations [facility] [employer] [place]([facility]) TOSHA Rogers([facility]) OUTPATIENT [id number] COB/BTL JUAN PABLO MILLER 09/02 Released w/o Limitations [facility] [employer] [place]([facility] TOSHA Wooten([facility]) TELE CONSULT [id number] Pt calling in regards to u/s referra l JUAN PABLO MILLER 09/03 [facility] [facility] [employer] [place]([facility] [employer] [place]([facility]) TELE CONSULT [id number] EXTERNA L OB REPORT JUAN PABLO MILLER 09/16 [place] [employer] [place]([facility] [employer] [place]([facility]) OUTPATIENT [id number] decreas ed FM JUAN PABLO MILLER 09/20 Released w/o Limitations [facility] [employer] [place]([facility]) [facility] [place], [place]HA([facility]) OUTPATIENT [id number] OMKAR REYNAGA LUIS A 09/22 Released w/o Limitations [facility] [employer] [place], TOSHA([facility]) TOSHA Rogers([facility]) OUTPATIENT [id number] OMKAR REYNAGA LUIS A 10/01 Released w/o Limitations [facility] [employer] [place], [place]([facility]) [facility] [employer] [place]([facility]) OUTPATIENT [id number] R/O SROM OMKAR WALKER LUIS A 10/03 Released w/o Limitations [facility] [facility] [employer] [place]([facility]) TOSHA Rogers([facility]) OUTPATIENT [id number] OMKAR REYNAGA LUIS A 10/09 Released w/o Limitations [facility] [employer] [place]([facility]) TOSHA Rogers([facility] OUTPATIENT [id number] SENTHIL JEREZ ARY 10/15 Released w/o Limitations [place] [facility] [employer] [place]([facility]) [facility] TOSHA Wooten([facility]) OUTPATIENT [id number] labor check SENTHIL GARCIA ARY 10/17 Released w/o Limitations [facility] [place]([facility]) [facility] [employer] [place]([facility]) OUTPATIENT [id number] SROM check OMKAR WALKER LUIS A 10/20 Released w/o Limitations [facility] TOSHA Estrada([facility]) [facility] TOSHA [place]ove[place] DIRECT TO [facility] FROM OTHER THAN ER OR APU [phone] [id number] ANABELLA SHIRLEY 10/20 DISCHARGED HOME [facility] [employer] Ste[place] [facility] [employer] [place]([facility]) TELE CONSULT [id number] 3 weeks PP questio BAMBI Coffey 11/10 TOSHA Montanez([facility]) TOSHA Rogers([facility]) OUTPATIENT [id number] F/U ANABELLA SHIRLEY M 11/12 Released w/o Limitations TOSHA Montanez([facility]) [facility] OUTPATIENT [id number] headach es and memory loss RICKIEMILLER DIAZ S 12/01 Released w/o Limitations TOSHA Montanez([facility] TOSHA Rogers([facility]) OUTPATIENT [id number] 6WPP ARACELIS GABRIELT 12/10 Released w/o Limitations TOSHA Montanez([facility]) [facility] TELE CONSULT [id number] consult needed MILLER DAMIAN S 12/16 [facility]HA Montanez([facility] TELE CONSULT [id number] consult not in RICKIEMILLER DIAZ S 12/29 [facility]HA Montanez([facility] TELE CONSULT [id number] referra l needed MILLER DAMIAN S 01/06 TOSHA Montanez([facility] TOSHA Rogers([facility]) OUTPATIENT [id number] CON72/E SSURE VS TUBAL FERNCOURTNEY PAIZN M 01/13 Released w/o Limitations TOSHA Montanez([facility]) [place]) TELE CONSULT [id number] referal name MILLER DAMIAN 01/13 [facility] TOSHA Estrada([facility]) TOSHA Rogers([facility]) TELE CONSULT [id number] SEE NOTES ANABELLA SHIRLEY 01/21 [facility] TOSHA Estrada([facility]) [facility] TOSHA Wooten([facility]) OUTPATIENT [id number] PREOP ANABELLA SHIRLEY 01/26 Released w/o Limitations [facility] TOSHA Estrada([facility]) TOSHA Rogers([facility]) TELE CONSULT [id number] See Note ANABELLA SHIRLEY 01/30 [facility] TOSHA Estrada([facility] TOSHA Wooten([facility]) TELE CONSULT [id number] SEE NOTES ANABELLA SHIRLEY 02/09 [facility] TOSHA Estrada([facility]) [facility] TOSHA Wooten([facility]) TELE CONSULT [id number] ANABELLA SHIRLEY 02/12 [facility] TOSHA Estrada([facility]) [facility] TOSHA Wooetn([facility]) OUTPATIENT [id number] con72/M cphee pt 2nd opinion HARSH CHEW 02/16 Released w/o Limitations [facility] TOSHA Estrada([facility]) [facility] TOSHA Wooten([facility]) OUTPATIENT [id number] cough congest ion 2 weeks SEVERO TORO 03/30 Released w/o Limitations [facility] TOSHA Estrada([facility]) [facility] TOSHA Wooten([facility] Internal Med [facility]) OUTPATIENT [id number] Referra l needed for therapy RICKIEMILLER DIAZ S 04/13 Released w/o Limitations [facility] Estrada([facility] H Interna l Med Clinic) [facility] [facility] TOSHA Wooten([facility] Internal [facility]) TELE CONSULT [id number] lab results RICKIEMILLER JUAREZ S 04/15 [facility] T[facility]HA Estrada([facility] H Interna l Med Clinic) [facility] TOSHA Wooten([facility] Internal Med [facility]) OUTPATIENT [id number] headach es, nausea RICKIEMILLER JUAREZ S 05/04 Released w/o Limitations [facility] TOSHA sEtrada([facility] H Interna l Med [facility]) [facility] TOSHA Wooten([facility] Internal [facility]) OUTPATIENT [id number] evaluat e migrain e medicat ions DYLAN MORAES 05/19 Released w/o Limitations [facility] Estrada([facility] Intern[facility] l Med [facility]) [place] OUTPATIENT [id number] need referra l for eye surgery ROCKY ALBRECHT 08/06 Released w/o Limitations [place] TOSHA Wooten([facility] Internal [facility]) TELE CONSULT [id number] Externa l MRI Results RICKIEMILLER JUAREZ S 08/25 [facility] [facility] TOSHA Estrada([facility] Intern[facility] l Med [facility]) [place] OUTPATIENT [id number] Ambrocio/ Libido and drive is very low JIHAN BIANCHI 12/21 Released w/o Limitations [place] [place] TELE CONSULT [id number] CLAUDINE PARMAR 12/30 [place] [place] TELE CONSULT [id number] AMBROCIO, RX REFILL, PH: ROCKY [facility]BRECHT [facility]12 [facility] OUT[facility] [id number] ambrocio/ bacteri al infecti on HORACE KAY 01/13 [facility]ased w/o Limitations [facility] OUTPATIENT [id number] (ambrocio ) sinuses , sore throat ROCKY ALBRECHT 02/12 [place]ased w/o Limitations [place] [facility] OUT[facility] [id number] cold symptom s TONYA SNIDER 06/29 [facility]ased w/o Limitations [facility] [place] [facility]) [place] [id number] NA DAILY 07/19 [facility]ased w/o Limitations [facility] [place] OUTPATIENT [id number] AMBROCIO. EXPERIE NCING HEAD NECK AND PAIN LINA OCASIO 08/18 [facility]ased w/o Limitations [facility] TELE CONSULT [id number] NINFA / Test results LINA OCASIO 08/19 [place] [facility] OUTPATIENT [id number] Ambrocio - fever, cough, achey, congest ion HORACE KAY 08/26 Released w/o Limitations [place] [facility] TELE CONSULT [id number] Ambrocio - (Maj. Ninfa bingham) - MRI results ROCKY ALBRECHT 09/17 [place] [facility] [place] [place]) OUTPATIENT [id number] Ambrocio - lower abd pain/;e lvic pain PHILL TAPIA 09/17 Released w/o Limitations [place] OUTPATIENT [id number] Ambrocio- abdomin al pain JASMEET ROWE 10/05 Released w/o Limitations [place] OUTPATIENT [id number] Ambrocio - C/o depress ion, and US results from a couple weeks ago. LINA OCASIO 10/18 Released w/o Limitations [place] [id number] ZULMA DIAZ 10/23 Released w/o Limitations [place] OUTPATIENT [id number] Ambrocio/ eval for spraine d foot/sw elling/ seen in ER JIHAN BIANCHI 10/25 Released w/o Limitations [place] [place]) TELE CONSULT [id number] ARIAS/ PT WAS TOLD TO COME BACK ON MON. IF ANKLE WAS STILL SWOLLEN PHILIP REEVES 10/27 Referred for Appointment [place] TELE CONSULT [id number] JIHAN BIANCHI 10/28 [place] [place] OUTPATIENT [id number] Ambrocio/ Follow up ankle ROCKY ALBRECHT 10/29 Released w/o Limitations [place] [id number] WES HERNANDEZ 10/31 Released w/o Limitations [place] OUTPATIENT [id number] Jeannette farris - C/o pelvic pains, stomach swollen , blacked out. EVERETTE GAITAN 11/29 Released w/o Limitations [place] TELE CONSULT [id number] JEANNETTE FARRIS- results PHILIP REEVES H 11/30 Referred for Appointment [place] [place] [facility] [id number] new pt cold sx x 2 days JANINE MADRID 04/07 [facility]ased w/o Limitations [facility] [place] [facility] [place] [facility] TELE CONSULT [id number] Pt request ing renewal for Nexium rx KAVITHA BURROUGHS H 04/26 [facility] for [facility] [place] [facility] OUTPATIENT [id number] WWE w/pap and f/u for nexium renewal . JANINE MADRID 05/02 [facility]ased w/o Limitations [facility] [place] [facility] [place] [facility] OUTPATIENT [id number] 30yo thyroid test results /mood concern s x1mo JANINE MADRID 06/01 [facility]ased w/o Limitations [facility] [place] [facility] [place] [facility] TELE CONSULT [id number] Pt LM on communications marketing intern line @ 0928 request ing early renewal on Zoloft rx JANINE MADRID 06/13 [facility] [place] [facility] [place] TELE CONSULT [id number] retro referra l KAVITHA GRAF 07/19 [place] [place] [facility] OUTPATIENT [id number] depress iion f/u JANINE MADRID 08/03 Released w/o Limitations [facility] [place] [facility] [place] [facility] TELE CONSULT [id number] Pt LM on communications marketing intern line request ing med renewal s JANINE MADRID 08/23 [facility] [place] [facility] [place] [facility] OUTPATIENT [id number] F/u med renewal s. JANINE MADRID 08/24 Released w/o Limitations [facility] [place] [facility] [place] [facility] OUTPATIENT [id number] 30YO NECK PN X2W JANINE MADRID 10/10 Released w/o Limitations [facility] [place] [facility] [place] [facility] TELE CONSULT [id number] Pt request ing status of PT Referra l to [facility] for worseni ng trapezi us muscle JANINE MADRID 11/10 [facility] [place] [facility] [place] [facility] TELE CONSULT [id number] communications marketing intern f/u for UARR on @ 1126 KAVITHA BURROUGHS 12/01 Other Not Elsewhere Classified 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 [place] [facility]) [facility] [place] [facility] OUTPATIENT [id number] bl anterio r eye muscle cx ongoing JANINE MADRID 12/05 Released w/o Limitations [facility] [place] [facility] [place] [facility]) TELE CONSULT [id number] Pt called communications marketing intern line @ 1012 request ing med renewal JANINE MADRID 12/08 [facility] [place] [facility] [place] [facility]) TELE CONSULT [id number] Pt called communications marketing intern line @ 1040 request ing lab results KAVITHA BURROUGHS 12/11 Other Not Elsewhere Classified [facility] [place] [facility]) [facility]) OUTPATIENT [id number] GISELLE GUERRERO 05/21 Released w/o Limitations [facility](E mergenc y Room [facility]) [facility]) OUTPATIENT [id number] R ovarian cyst/CO NSULT SPENCERSKINNY R 06/01 [facility]ased w/o Limitations [facility] [place] [facility]) OUTPATIENT [id number] 31yo poss sinus or cold cx x1wk JANINE MADRID 07/20 Released w/o Limitations [facility] [place] [facility] [place] [facility] OUTPATIENT [id number] F/U EYE PN JANINE MADRID 10/01 Released w/o Limitations [facility] [place] [facility] [place] [facility]) OUTPATIENT [id number] f/u JANINE MADRID 10/16 Released w/o Limitations [facility] [place] [facility](M Opht Pediatric ) OUTPATIENT [id number] per KAMILA Camara 10/17 Released w/o Limitations [facility](M Opht Pediatr ic) [facility] [place] [facility]) TELE CONSULT [id number] Notes Entered by: Jerry BURROUGHS 20 Nov 2012 1133 ------- ------- ------- ------- -- Pt called communications marketing intern line @ 1131 request ing med order JANINE MADRID 11/20 [facility] [place] [facility] [place] [facility]) OUTPATIENT [id number] WWE, annual PE JANINE MADRID 01/21 Released w/o Limitations [facility] [place] [facility] [place] [facility]) TELE CONSULT [id number] Notes Entered by: DARREN SINHA 26 Feb 2013 1342 ------- ------- ------- ------- -- MOP called and left voice message @ 6289 to communications marketing intern phone VITA VERDUGO 02/26 [facility] [place] [facility] [place] [facility]) OUTPATIENT [id number] stomach pain / poss ovarian cyst cx 2d MICKIE OBANDO 03/01 Released w/o Limitations [facility] [place] [facility]) [facility] [facility] OUTPATIENT [id number] Cough x3-4 weeks JANINE MADRID 05/31 Released w/o Limitations [facility]) [facility] [place] [facility]) TELE CONSULT [id number] Notes Entered by: DARREN SINHA 13 Aug 2013 1035 ------- ------- ------- ------- -- Pt called Advice Line @ 0952 DARREN FRANK 08/[address] [facility]) [facility] [place] [facility]) OUTPATIENT [id number] R hand pain x 1.5 years/w orsenin g x 1.5 weeks JANINE MADRID 08/15 Released with Work/Duty Limitations [facility]) [facility] [facility]) TELE CONSULT [id number] Notes Entered by: Jerry BURROUGHS 16 Aug 2013 1111 ------- ------- ------- ------- -- Pt LM on communications marketing intern line @ 1052 request ing rad results DARREN FRANK 08/[address] for [address] [facility] 1) [facility] [facility]) OUTPATIENT [id number] f/u xray results [id number] JANINE MADRID 08/28 Released w/o Limitations [facility]) [facility] [place] [facility]) TELE CONSULT [id number] Notes Entered by: Jerry BURROUGHS 10 Sep 2013 0920 ------- ------- ------- ------- -- Pt called communications marketing intern line @ 7060 request ing rad results JANINE MADRID 09/10 [facility]) [facility] [facility]) TELE CONSULT [id number] Notes Entered by: Delon LORA 17 Sep 2013 1536 ------- ------- ------- ------- -- Req refill of med and qx JANINE MADRID 09/17 [facility] [place] [facility]) [facility] [id number] joint pain, localiz ed in the right wrist YUDITH LIZARRAGA 09/20 Released w/o Limitations [facility] [facility]) OUTPATIENT [id number] L KNEE PN X1D JANINE MADRID 03/12 Released w/o Limitations [facility]) OUTPATIENT [id number] spot on r wristx1 wk/acne JANINE MADRID 03/17 Released w/o Limitations [facility]) [facility] [place]([facility]) TELE CONSULT [id number] Notes Entered by: OLIVER MCMAHAN 10 Sep 2014 1033 ------- ------- ------- ------- -- CATHY AGUIRRE 09/10 Referred for Appointment [facility] [place]([facility]) [facility] [place]([facility]) OUTPATIENT [id number] PCM Anderso n/ new pts medicat ions, irregul ar menstru SHAWN Peralta 10/02 Released w/o Limitations [facility] [place] [place] [facility] [place] Environmental Field Team Member at [facility]) TELE CONSULT [id number] Notes Entered by: MICKIE OVERTON 23 Oct 2014 1159 ------- ------- ------- ------- -- no-show SHEELA PHOENIX 10/23 [facility] [place] Environmental Field Team Member at [facility]) [facility] [place]) OUTPATIENT [id number] [facility] LINDEN SCHMIDT 10/29 Released w/o Limitations [facility] [place] [facility] [place] [place] TELE CONSULT [id number] Notes Entered by: ANTHONY TORRES 27 Nov 2014 0932 ------- ------- ------- ------- -- Medicat ion Refill / PCM: SHAWN Nicole 11/27 [facility] [place] [place] [facility] [place] Environmental Field Team Member at [facility]) TELE CONSULT [id number] Notes Entered by: EDELMIRA CLARK 27 Nov 2014 1349 ------- ------- ------- ------- -- no show SHEELA PHOENIX 11/27 [facility] [place] Environmental Field Team Member at [facility]) [facility] [place] Environmental Field Team Member at [facility]) OUTPATIENT [id number] ovarian cyst ELIEL NINO 12/03 Released w/o Limitations [facility] [place] Environmental Field Team Member at [facility]) [facility] [place] [place] [place] TELE CONSULT [id number] Notes Entered by: AVANI DAY 20 Jan 2015 1303 ------- ------- ------- ------- -- AVANI ZAOMRA 01/20 Other Not Elsewhere Classified [facility] [place] [place] [facility] [place] [place] TELE CONSULT [id number] Notes Entered by: SHAWN SINHA 21 Apr 2015 1344 ------- ------- ------- ------- -- med SHAWN Marie 04/21 [facility] [place] [place] [facility] [place] Environmental Field Team Member at [facility]) TELE CONSULT [id number] Notes Entered by: ANTHONY TORRES 22 Apr 2015 1503 ------- ------- ------- ------- -- No Activit y-Endo- 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 JASMEET OSUNA 04/22 [facility] [place] Environmental Field Team Member at [facility]) [facility] [place] [place] OUTPATIENT [id number] pcm jesus aparicio / salvatore ion, headach e, sore throat, coughin g and cyst on hip SHAWN FRANK 05/26 Released w/o Limitations [facility] [place] [place] [facility] [place] [place]) OUTPATIENT [id number] PCM:AND ERSON F/U THYROID SHAWN FRANK 07/03 Released w/o Limitations [facility] [place] [place] [facility] [place] [place]) OUTPATIENT [id number] PCM:AND ERSON F/U L;AB RESULTS SHAWN FRANK 07/09 Released w/o Limitations [facility] [place] [place] [facility] [place] OUTPATIENT [id number] Notes Entered by: DAVID COULTER 22 Jul 2015 1407 ------- ------- ------- ------- -- outproc STAR Gupta 07/22 Released w/o Limitations [facility] [place]) [facility] [place] [place] TELE CONSULT [id number] Notes Entered by: LLOYD SKINNER 13 Aug 2015 1054 ------- ------- ------- ------- -- PCM Andgrabiel n / Cl keene s same day appt JYOTI BRANCH 08/13 Immediate Referral [facility] [place] [place] [facility] [place] [place] TELE CONSULT [id number] Notes Entered by: SA JORGE ALICEA 20 Aug 2015 0939 ------- ------- ------- ------- -- CLR Report UCC - Sinusit is/Head ache 6 SHAWN FRANK 08/20 [facility] [place] [place] [facility] [place] [place]) OUTPATIENT [id number] pcm jesus aparicio/emmie moreno up from urgent care SHAWN FRANK 08/21 Released w/o Limitations [facility] [place] [place] [facility] [place] [place] TELE CONSULT [id number] Notes Entered by: KIMBERLI MERINO SA 28 Aug 2015 1613 ------- ------- ------- ------- -- no show mole on rib cage 3416 BARB, AVANI 08/27 Other Not Elsewhere Classified [facility] [place] [place] [facility] [place] [place]) OUTPATIENT [id number] pcm pajak / right wrist pain NICOLASA FLOYD 09/27 Released w/o Limitations [facility] [place] [place] [facility] [place] [place] TELE CONSULT [id number] Notes Entered by: NIGEL CHILDERS 28 Oct 2015 1456 ------- ------- ------- ------- -- pcm-selena hurley is calling for mri results please call patient back at NICOLASA FLOYD 10/27 [facility] [place] [place] [facility] [place] [place] TELE CONSULT [id number] Notes Entered by: SYLWIA RINCON 03 Nov 2015 1201 ------- ------- ------- ------- -- MRI results NICOLASA FLOYD 11/02 [facility] [place] [place] [facility] [place] OUTPATIENT [id number] Pain in right wrist JAMSHID BERMUDEZ 11/09 Released w/o Limitations [facility] [place] [facility] [place]) OUTPATIENT [id number] pcm Pajak-l eft foot pain ALLEN ANGEL 11/23 Released w/o Limitations [facility] [place] [place] [facility] [place] [place] OUTPATIENT [id number] pcm pajak - left foot pain ALLEN ANGEL 11/30 Released w/o Limitations [facility] [place] [place] [facility] [place] [place] TELE CONSULT [id number] Notes Entered by: CARI DURON 01 Dec 2015 1546 ------- ------- ------- ------- -- PCM:PAJ AK Pt called request marissa horan to NICOLASA Moon 11/30 [place] [place] OUTPATIENT [id number] PCM:SELENA AK LEFT FOOT PAIN NICOLASA FLOYD 12/13 Released w/o Limitations [place] [place]) TELE CONSULT [id number] Notes Entered by: LLOYD SKINNER 23 Dec 2015 1152 ------- ------- ------- ------- -- PCM Nena / Pt feels off balance and feels like the room is NICOLASA Izquierdo 12/22 [place] [place]) TELE CONSULT [id number] Notes Entered by: RAFAT NEFF 04 Feb 2016 0913 ------- ------- ------- ------- -- CLR-Rep ort-Oph thalmol ogyothe chaihrmarcia bradley icconju nctivit 6 NICOLASA FLOYD 02/03 [place] [place] Environmental Field Team Member at [facility]) OUTPATIENT [id number] Cervica l cancer screen COLBY DENT 02/15 Released w/o Limitations [place] Environmental Field Team Member at [facility]) [place] Environmental Field Team Member at [facility]) OUTPATIENT [id number] f/u with Carolee tony (eval for bleedin g) STEVE MEYERS 03/11 Released w/o Limitations [facility] [place] Environmental Field Team Member at [facility]) [facility] [place] Environmental Field Team Member at [facility]) TELE CONSULT [id number] Notes Entered by: David AVALOS 18 Mar 2016 1120 ------- ------- ------- ------- -- CLR Report- PT-Divina cochran 03/17/16 COLBY DENT 03/18 [facility] [place] Environmental Field Team Member at [facility]) [facility] [place], [place] Environmental Field Team Member at [facility]) OUTPATIENT [id number] FU ultraso und [facility] Feb, discuss surgery STEVE MEYERS 04/05 Released w/o Limitations [facility] [place] Environmental Field Team Member at [facility]) [facility] [place] Environmental Field Team Member at [facility]) TELE CONSULT [id number] Notes Entered by: Artur DESHPANDE 06 Apr 2016 1031 ------- ------- ------- ------- -- Surgica DEEPTHI Reis 04/06 [facility] Appointment [facility] [place] Environmental Field Team Member at [facility]) [facility] [place] Environmental Field Team Member at [facility]) OUTPATIENT [id number] pre op STEVE MEYERS 04/06 Released w/o Limitations [facility] [place] Environmental Field Team Member at [facility]) [facility] [place] Environmental Field Team Member at [facility]) TELE CONSULT [id number] Notes Entered by: KATIE ROSENTHAL 13 Apr 2016 0947 ------- ------- ------- ------- -- Patient has questio ns about surgery STEVE MEYERS 04/13 [place] Environmental Field Team Member at [facility]) [place] Environmental Field Team Member at [facility]) TELE CONSULT [id number] Notes Entered by: Delon MCCLELLAN 27 Apr 2016 0817 ------- ------- ------- ------- -- pap results HANSHANELL 04/27 [facility] [place] Environmental Field Team Member at [facility]) [place] Environmental Field Team Member at [facility]) OUTPATIENT [id number] FU STEVE Kendrick 05/18 Released w/o Limitations [place] Environmental Field Team Member at [facility]) [facility] [place] Environmental Field Team Member at [facility]) TELE CONSULT [id number] Notes Entered by: DYLON ADAME 25 May 2016 1625 ------- ------- ------- ------- -- request ing surgery date DEEPTHI DESHPANDE 05/25 [facility] [place] Environmental Field Team Member at [facility]) [place] Environmental Field Team Member at [facility]) OUTPATIENT [id number] Pre op product grader STEVE MEYERS 06/14 Released w/o Limitations [place] Environmental Field Team Member at [facility]) [facility] [place] Environmental Field Team Member at [facility]) TELE CONSULT [id number] Notes Entered by: Artur DESHPANDE 16 Jun 2016 1022 ------- ------- ------- ------- -- Surgica l Ravin s DEEPTHI DESHPANDE 06/16 [facility] for [facility] [place] Environmental Field Team Member at [facility]) [facility] [place] [place] TELE CONSULT [id number] Notes Entered by: KALEIGH ABBASI 22 Jun 2016 0933 ------- ------- ------- ------- -- PCM Ali - PT has 101 - 102 temp and is very weak. MARSHA DOMINGUEZ 06/22 [facility] [place] [place] [place] [facility] [place] [place] OUTPATIENT [id number] COUGH, FEVER, WEAKNES S.TRIAG CORNELIO LUCAS 06/22 Released w/o Limitations [facility] [place] [place] [facility] [place] [place] TELE CONSULT [id number] Notes Entered by: SERVANDO NOLEN 23 Jun 2016 1030 ------- ------- ------- ------- -- PCM- Ali: Pt has seen by Sebas shannon: Pt needs a NURSE CONSULT on her JORGE BRENNAN Artur 06/23 Referred for Appointment [facility] [place] [facility] [place] OUTPATIENT [id number] pcm ali - follow up rll pneumon CORNELIO Sapp 06/24 Released w/o Limitations [facility] [place] [place] [facility] [place] [place]) OUTPATIENT [id number] PCM ALI PBO SEBAS Shannon F/U PNEUMON PRATEEK BARRIOS 06/28 Released w/o Limitations [facility] [place] [facility] [place] [place] [place] OUTPATIENT [id number] pcm ali/ continu al flu symptom s/white color in back of throat SCOOTER MCKNIGHT 07/12 Released w/o Limitations [facility] [place] [place] [facility] [place] TELE CONSULT [id number] Notes Entered by: Melany MCKNIGHT 14 Jul 2016 0836 ------- ------- ------- ------- -- STREP DAWIT AGUILARDERJYOTI 07/14 [facility]ased to [facility] [place] Environmental Field Team Member at [facility]) OUTPATIENT [id number] preop (appt cx from 07/19-)STEVE Moreira 07/21 Released w/o Limitations [facility] [place] Environmental Field Team Member at [facility]) [facility] [place] Environmental Field Team Member at [facility]) TELE CONSULT [id number] Notes Entered by: Artur DESHPANDE 21 Jul 2016 1339 ------- ------- ------- ------- -- Surgica l DEEPTHI Flores 07/21 Referred for Appointment [place] Environmental Field Team Member at [facility]) [place] Environmental Field Team Member at [facility]) TELE CONSULT [id number] Notes Entered by: MICKIE OVERTON 25 Jul 2016 0854 ------- ------- ------- ------- -- Pt needs meds reorder ed IRA MOHAMUD 07/25 [facility] Appointment [facility] [place] Environmental Field Team Member at [facility]) [facility] [place] [place]) OUT[place] [id number] PCM ANNETTE Horan TO ZULMA JON 08/24 Released w/o Limitations [facility] [place] [place] [facility] [place] [place] TELE CONSULT [id number] Notes Entered by: JORGE BRENNAN 05 Sep 2016 1558 ------- ------- ------- ------- -- pcm ali - pre-ope JORGE Bailey 09/05 Other Not Elsewhere Classified [facility] [place] [facility] [place] [place] TELE CONSULT [id number] Notes Entered by: CARI DURON 09 Sep 2016 1425 ------- ------- ------- ------- -- PCM:AL Pt called request ing to check the status of a surgica l francisco mosquera form OLIVER KULKARNI 09/09 Other Not Elsewhere Classified [facility] [place] F[facility]) [facility] [place] TELE CONSULT [id number] Notes Entered by: KIMBERLI MERINO SA 30 Sep 2016 1622 ------- ------- ------- ------- -- NO SHOW SKIN CHANGES 09/30/16 JACI GHOSH 09/30 Referred for Appointment [facility] [place](Derm atology [facility] Dr) [facility] [place] [place] [facility] OUTPATIENT [id number] Other skin changes ADRIANA SHARP 11/25 Released w/o Limitations [facility] [place](Derm atology Clinic Dr) [facility] [place] [place] OUTPATIENT [id number] pcm ali - back pain ANNETTE, MONSMAURICIO 12/29 Released w/o Limitations [facility] [place]([facility] F01D [facility]) [facility] [place](Dermat ology Clinic Dr) OUTPATIENT [id number] f/u acne ADRIANA SHARP 12/30 Released w/o Limitations [facility] [place](Derm atology Clinic ) [facility] [place]([facility] F[facility]D [facility]) OUTPATIENT [id number] ALI OMT ALI, MONSUR 01/12 Released w/o Limitations [place], [place]([facility] F01D Gold) [place] [facility] Out[facility] Encounter [id number] 06/06 [place] [facility] [place] [facility] Encounter [id number] 08/21 [place] [facility] [place] [facility] ASSMT/REAS SESSMENT [id number] Diagnos is: ICD-10- CM Z65.9 Problem related to unspeci fied psychos ocial circums tances WIENEKE,DO NNA L 01[facility]02 [facility] [place] [facility] En[facility] [id number] 03/27 [place] [facility] [place] [facility] ASSMT/REAS SESSMENT [id number] Diagnos is: ICD-10- CM Z65.9 Problem related to unspeci fied psychos ocial circums tances WIENEKE,DO NNA L 05/27 [place] [facility] PSYCH DIAGNOSTIC EVALUATION [id number] Diagnos is: ICD-10- CM Z65.9 Problem related to unspeci fied psychos ocial circums tances WIENEKE,DO NNA L 08/21 [facility] Procedures Combined list of: 1) Procedures from Department of Veterans Affairs facilities going back up to thelast 18 months, not all [place] non-surgical procedures are included; 2) All procedures from the Department of Defense facilities. Procedure Procedure Type Code Date Perfomer Comments Sourc e Uterine Ablation 2016 [place] D&C of uterus due to polyp 2015 [facility] Tubal Ligation 2008 [place] Eye Muscle Surgery Right Eye 1982, 1996, 2005, 2016 [facility] Eye Muscle Surgery Left Eye 1982, 1996, 2005, [facility] TELE ASSESS & MGT SRV PROV QUAL NONPHYS HLTH CARE PRO TO EST PAT,PARENT,GUARD NOT ORIG REL ASSESS & MGT SRV PROV W/IN PREV 7 DAYS NOR LEAD ASSESS & MGT SRV/PX W/IN NXT 24H/SOON APT; 11-20 MIN MED DIS 014 DoD SENSORIMOTOR EXAMINATION WITH MULTIPLE MEASUREMENTS OF OCULAR DEVIATION (EG, RESTRICTIVE OR PARETIC MUSCLE WITH DIPLOPIA) WITH INTERPRETATION AND REPORT (SEPARATE PROCEDURE) 013 [facility] SENSORIMOTOR EXAMINATION WITH MULTIPLE MEASUREMENTS OF OCULAR DEVIATION (EG, RESTRICTIVE OR PARETIC MUSCLE WITH DIPLOPIA) WITH INTERPRETATION AND REPORT (SEPARATE PROCEDURE) 013 [facility] OPHTHALMOSCOPY, EXTENDED, WITH RETINAL DRAWING (EG, FOR RETINAL DETACHMENT, MELANOMA), WITH INTERPRETATION AND REPORT; INITIAL 013 [facility] ULTRASOUND, TRANSVAGINAL 012 [facility] SMEAR, PRIMARY SOURCE WITH INTERPRETATION; WET MOUNT FOR INFECTIOUS AGENTS (EG, SALINE, MAITE INK, MIMI PREPS) 012 DoD TELE ASSESS & MGT SRV PROV QUAL NONPHYS HLTH CARE PRO TO EST PAT,PARENT,GUARD NOT ORIG REL ASSESS & MGT SRV PROV W/IN PREV 7 DAYS NOR LEAD ASSESS & MGT SRV/PX W/IN NXT 24 HR/SOON APT;5-10 MIN MED DIS 012 DoD TELE ASSESS & MGT SRV PROV QUAL NONPHYS HLTH CARE PRO TO EST PAT,PARENT,GUARD NOT ORIG REL ASSESS & MGT SRV PROV W/IN PREV 7 DAYS NOR LEAD ASSESS & MGT SRV/PX W/IN NXT 24 HR/SOON APT;5-10 MIN MED DIS 012 DoD TELE ASSESS & MGT SRV PROV QUAL NONPHYS HLTH CARE PRO TO EST PAT,PARENT,GUARD NOT ORIG REL ASSESS & MGT SRV PROV W/IN PREV 7 DAYS NOR LEAD ASSESS & MGT SRV/PX W/IN NXT 24 HR/SOON APT;5-10 MIN MED DIS 011 DoD CERVICAL OR VAGINAL CANCER SCREENING; PELVIC AND CLINICAL BREAST EXAMINATION 011 DoD POSTOPERATIVE FOLLOW-UP VISIT, NORMALLY INCLUDED IN THE SURGICAL PACKAGE, INDICATE THAT EVALUATION & MANAGEMENT SERVICE WAS PERFORMED DURING A POSTOPERATIVE PERIOD REASON RELATED ORIGINAL PROCEDURE 009 [facility] UNLISTED SPECIAL SERVICE, PROCEDURE OR REPORT 009 [facility] SCREENING [place]APANICOLAOU SMEAR; OBTAINING, PREPARING AND CONVEYANCE OF CERVICAL OR VAGINAL SMEAR TO LABORATORY 06/17/2 009 DoD ULTRASOUND, TRANSVAGINAL [facility] OTHER ARTIFICIAL RUPTURE OF MEMBRANES [facility] POSTOPERATIVE FOLLOW-UP VISIT, NORMALLY INCLUDED IN THE SURGICAL PACKAGE, INDICATE THAT EVALUATION & MANAGEMENT SERVICE WAS PERFORMED DURING A POSTOPERATIVE PERIOD REASON RELATED ORIGINAL PROCEDURE [facility] VAGINAL DELIVERY ONLY (WITH OR WITHOUT EPISIOTOMY AND/OR FORCEPS); [facility] FERN TEST [facility] NON-STRESS TEST [facility] SUBSEQ CARE VISIT () [EXCLS:PATIENTS WHO ARE SEEN FOR A CONDITION UNREL TO / CARE (EG,AN UP RESPIR INFECT;PATIENTS SEEN FOR CONSULTATION ONLY,NOT FOR CONT CARE)] [facility] SUBSEQ CARE VISIT () [EXCLS:PATIENTS WHO ARE SEEN FOR A CONDITION UNREL TO / CARE (EG,AN UP RESPIR INFECT;PATIENTS SEEN FOR CONSULTATION ONLY,NOT FOR CONT CARE)] [facility] SUBSEQ CARE VISIT () [EXCLS:PATIENTS WHO ARE SEEN FOR A CONDITION UNREL TO / CARE (EG,AN UP RESPIR INFECT;PATIENTS SEEN FOR CONSULTATION ONLY,NOT FOR CONT CARE)] [facility] SUBSEQ CARE VISIT () [EXCLS:PATIENTS WHO ARE SEEN FOR A CONDITION UNREL TO / CARE (EG,AN UP RESPIR INFECT;PATIENTS SEEN FOR CONSULTATION ONLY,NOT FOR CONT CARE)] [facility] SUBSEQ CARE VISIT () [EXCLS:PATIENTS WHO ARE SEEN FOR A CONDITION UNREL TO / CARE (EG,AN UP RESPIR INFECT;PATIENTS SEEN FOR CONSULTATION ONLY,NOT FOR CONT CARE)] [facility] NON-STRESS TEST [facility] SUBSEQ CARE VISIT () [EXCLS:PATIENTS WHO ARE SEEN FOR A CONDITION UNREL TO / CARE (EG,AN UP RESPIR INFECT;PATIENTS SEEN FOR CONSULTATION ONLY,NOT FOR CONT CARE)] [facility] ULTRASOUND, UTERUS, REAL TIME WITH IMAGE DOCUMENTATION, LIMITED (EG, HEART BEAT, PLACENTAL LOCATION, POSITION AND/OR QUALITATIVE AMNIOTIC FLUID VOLUME), 1 OR MORE FETUSES [facility] FERN TEST [facility] SUBSEQ CARE VISIT () [EXCLS:PATIENTS WHO ARE SEEN FOR A CONDITION UNREL TO / CARE (EG,AN UP RESPIR INFECT;PATIENTS SEEN FOR CONSULTATION ONLY,NOT FOR CONT CARE)] 009 [facility] SUBSEQ CARE VISIT () [EXCLS:PATIENTS WHO ARE SEEN FOR A CONDITION UNREL TO / CARE (EG,AN UP RESPIR INFECT;PATIENTS SEEN FOR CONSULTATION ONLY,NOT FOR CONT CARE)] 008 [facility] SUBSEQ CARE VISIT () [EXCLS:PATIENTS WHO ARE SEEN FOR A CONDITION UNREL TO / CARE (EG,AN UP RESPIR INFECT;PATIENTS SEEN FOR CONSULTATION ONLY,NOT FOR CONT CARE)] 008 [facility] SMEAR, PRIMARY SOURCE WITH INTERPRETATION; WET MOUNT FOR INFECTIOUS AGENTS (EG, SALINE, MAITE INK, MIMI PREPS) [facility] SCREENING PAP[place]ICOLAOU SMEAR; OBTAINING, PREPARING AND CONVEYANCE OF CERVICAL OR VAGINAL SMEAR TO LABORATORY DoD URINE TEST, BY VISUAL COLOR COMPARISON METHODS DoD NONINVASIVE EAR OR PULSE OXIMETRY FOR OXYGEN SATURATION; SINGLE DETERMINATION [facility] URINE TEST, BY VISUAL COLOR COMPARISON METHODS DoD INJECTION, KETOROLAC TROMETHAMINE, PER 15 MG DoD CYTOPATHOLOGY, SMEARS, CERVICAL OR VAGINAL, UP TO THREE SMEARS; SCREENING BY FELLER BUNCHER OPERATOR UNDER PHYSICIAN SUPERVISION DoD COLPOSCOPY OF THE CERVIX INCLUDING UPPER/ADJACENT VAGINA; WITH BIOPSY(S) OF THE CERVIX AND ENDOCERVICAL CURETTAGE 005 DoD OTHER MANUALLY ASSISTED DELIVERY DoD VAGINAL DELIVERY ONLY (WITH OR WITHOUT EPISIOTOMY AND/OR FORCEPS); DoD NON-STRESS TEST DoD HANDLING AND/OR CONVEYANCE OF SPECIMEN FOR TRANSFER FROM THE OFFICE TO A LABORATORY DoD HANDLING AND/OR CONVEYANCE OF SPECIMEN FOR TRANSFER FROM THE OFFICE TO A LABORATORY 005 DoD ULTRASOUND, UTERUS, REAL TIME WITH IMAGE DOCUMENTATION, LIMITED (EG, HEART BEAT, PLACENTAL LOCATION, POSITION AND/OR QUALITATIVE AMNIOTIC FLUID VOLUME), 1 OR MORE FETUSES [facility] BIRTHING CLASSES, NON-PHYSICIAN PROVIDER, PER SESSION [facility] BIRTHING CLASSES, NON-PHYSICIAN PROVIDER, PER SESSION [facility] NON-STRESS TEST [facility] BIRTHING CLASSES, NON-PHYSICIAN PROVIDER, PER SESSION [facility] BIRTHING CLASSES, NON-PHYSICIAN PROVIDER, PER SESSION [facility] ULTRASOUND, UTERUS, REAL TIME WITH IMAGE DOCUMENTATION, AND MATERNAL EVALUATION PLUS DETAILED ANATOMIC EXAMINATION,TRANSAB DOMINAL APPROACH; SINGLE OR FIRST GESTATION [facility] COLPOSCOPY OF THE CERVIX INCLUDING UPPER/ADJACENT VAGINA; [facility] SCREENING [place]AOU SMEAR; OBTAINING, PREPARING AND CONVEYANCE OF CERVICAL OR VAGINAL SMEAR TO LABORATORY [facility] EDUCATIONAL SUPPLIES, SUCH BOOKS, TAPES, AND PAMPHLETS, FOR THE PATIENT'S EDUCATION AT COST TO PHYSICIAN OR OTHER QUALIFIED HEALTH SACK CLEANER [facility] NONINVASIVE EAR OR PULSE OXIMETRY FOR OXYGEN SATURATION; SINGLE DETERMINATION [facility] SPECIAL REPORTS SUCH INSURANCE FORMS, MORE THAN THE INFORMATION CONVEYED IN THE USUAL MEDICAL COMMUNICATIONS OR STANDARD REPORTING FORM DoD OSTEOPATHIC MANIPULATIVE TREATMENT (OMT); 5-6 BODY REGIONS INVOLVED DoD OSTEOPATHIC MANIPULATIVE TREATMENT (OMT); 3-4 BODY REGIONS INVOLVED DoD TELE ASSESS & MGT SRV PROV QUAL NONPHYS HLTH CARE PRO TO EST PAT,PARENT,GUARD NOT ORIG REL ASSESS & MGT SRV PROV W/IN PREV 7 DAYS NOR LEAD ASSESS & MGT SRV/PX W/IN NXT 24 HR/SOON APT;5-10 MIN MED DIS 017 DoD TELE ASSESS & MGT SRV PROV QUAL NONPHYS HLTH CARE PRO TO EST PAT,PARENT,GUARD NOT ORIG REL ASSESS & MGT SRV PROV W/IN PREV 7 DAYS NOR LEAD ASSESS & MGT SRV/PX W/IN NXT 24 HR/SOON APT;5-10 MIN MED DIS 017 DoD TELE ASSESS & MGT SRV PROV QUAL NONPHYS HLTH CARE PRO TO EST PAT,PARENT,GUARD NOT ORIG REL ASSESS & MGT SRV PROV W/IN PREV 7 DAYS NOR LEAD ASSESS & MGT SRV/PX W/IN NXT 24 HR/SOON APT;5-10 MIN MED DIS 016 DoD TELE ASSESS & MGT SRV PROV QUAL NONPHYS HLTH CARE PRO TO EST PAT,PARENT,GUARD NOT ORIG REL ASSESS & MGT SRV PROV W/IN PREV 7 DAYS NOR LEAD ASSESS & MGT SRV/PX W/IN NXT 24 HR/SOON APT;5-10 MIN MED DIS 016 [facility] HYSTEROSCOPY, SURGICAL; WITH SAMPLING (BIOPSY) OF ENDOMETRIUM AND/OR POLYPECTOMY, WITH OR WITHOUT D & C 016 [facility] SCREENING [place] SMEAR; OBTAINING, PREPARING AND CONVEYANCE OF CERVICAL OR VAGINAL SMEAR TO LABORATORY 016 DoD TELE ASSESS & MGT SRV PROV QUAL NONPHYS HLTH CARE PRO TO EST PAT,PARENT,GUARD NOT ORIG REL ASSESS & MGT SRV PROV W/IN PREV 7 DAYS NOR LEAD ASSESS & MGT SRV/PX W/IN NXT 24 HR/SOON APT;5-10 MIN MED DIS 016 DoD WRIST HAND ORTHOSIS, WRIST EXTENSION CONTROL COCK-UP, NON MOLDED, PREFABRICATED, [id number] 016 DoD TELE ASSESS & MGT SRV PROV QUAL NONPHYS HLTH CARE PRO TO EST PAT,PARENT,GUARD NOT ORIG REL ASSESS & MGT SRV PROV W/IN PREV 7 DAYS NOR LEAD ASSESS & MGT SRV/PX W/IN NXT 24 HR/SOON APT;5-10 MIN MED DIS 016 DoD TELE ASSESS & MGT SRV PROV QUAL NONPHYS HLTH CARE PRO TO EST PAT,PARENT,GUARD NOT ORIG REL ASSESS & MGT SRV PROV W/IN PREV 7 DAYS NOR LEAD ASSESS & MGT SRV/PX W/IN NXT 24 HR/SOON APT;5-10 MIN MED DIS 016 DoD TELE ASSESS & MGT SRV PROV QUAL NONPHYS HLTH CARE PRO TO EST PAT,PARENT,GUARD NOT ORIG REL ASSESS & MGT SRV PROV W/IN PREV 7 DAYS NOR LEAD ASSESS & MGT SRV/PX W/IN NXT 24 HR/SOON APT;5-10 MIN MED DIS 015 DoD SCREENING TEST OF VISUAL ACUITY, QUANTITATIVE, BILATERAL 015 DoD TELE ASSESS & MGT SRV PROV QUAL NONPHYS HLTH CARE PRO TO EST PAT,PARENT,GUARD NOT ORIG REL ASSESS & MGT SRV PROV W/IN PREV 7 DAYS NOR LEAD ASSESS & MGT SRV/PX W/IN NXT 24 HR/SOON APT;5-10 MIN MED DIS 015 [facility] URINALYSIS; QUALITATIVE OR SEMIQUANTITATIVE, EXCEPT IMMUNOASSAYS [facility] COMPRESSION BANDAGE, ROLL 011 [facility] CRUTCHES UNDERARM, OTHER THAN WOOD, ADJUSTABLE OR FIXED, PAIR, WITH PADS, TIPS AND HANDGRIPS [facility] NONINVASIVE EAR OR PULSE OXIMETRY FOR OXYGEN SATURATION; SINGLE DETERMINATION 011 [facility] Osteopathic Manip Treatment (OMT) 5-6 Body Regions Involved Osteopathic Manip Treatment (OMT) 5-6 Body Regions Involved [id number] ANNETTE ARIAS [facility] Osteopathic Manip Treatment (OMT) 3-4 Body Regions Involved Osteopathic Manip Treatment (OMT) 3-4 Body Regions Involved [id number] ANNETTE ARIAS Patient tolerated the procedure well, had immediate relief of pain and improvement of ROM without any immediate complications . [facility] Non-Physician Phone Call To Patient/Provider Brief (5-10min) Non-Physician Phone Call To Patient/Provider Brief (5-10min) [id number] [phone] OLIVER RIVERO [facility] Non-Physician Phone Call To Patient/Provider Brief (5-10min) Non-Physician Phone Call To Patient/Provider Brief (5-10min) [id number] [phone] JYOTI BRANCH [facility] Non-Physician Phone Call To Patient/Provider Brief (5-10min) Non-Physician Phone Call To Patient/Provider Brief (5-10min) [id number] [id number] JORGE BRENNAN RN spent 8 minutes on telephone with pt [facility] Non-Physician Phone Call To Patient/Provider Brief (5-10min) Non-Physician Phone Call To Patient/Provider Brief (5-10min) [id number] MARSHA DOMINGUEZ [facility] Infectious agent detection by nucleic acid (DNA or RNA); Human Papillomavirus (HPV), high-risk types (e.g., 16, 18, 31, 33, 35, 39, 45, 51, 52, 56, 58, 59, 68) for cervical cancer screening, must be performed in addition to pap test 016 COLBY DENT [facility] Non-Physician Phone Call To Patient/Provider Brief (5-10min) Non-Physician Phone Call To Patient/Provider Brief (5-10min) [id number] [id number] NICOLASA FLOYD Wrist hand orthosis, wrist extension control cock-up, non molded, prefabricated, [id number] JAMSHID FLORES Physical Therapy Education Orthotics Training Initial 15 Min JAMSHID FLORES Finger orthosis, without joints, may include soft interface, custom fabricated, includes fitting and adjustment JAMSHID FLORES Exercises A isted Exercises For ROM Exercises Assisted [place]ercises [place] ROM 38302 JAMSHID FLORES Occupational Therapy Evaluation Occupational Therapy Evaluation [id number] JAMSHID FLORES Non-Physician Phone Call To Patient/Provider Brief (5-10min) Non-Physician Phone Call To Patient/Provider Brief (5-10min) [id number] NICOLASA FLOYD Non-Physician Phone Call To Patient/Provider Brief (5-10min) Non-Physician Phone Call To Patient/Provider Brief (5-10min) [id number] AVANI DAY [facility] Non-Physician Phone Call To Patient/Provider Brief (5-10min) Non-Physician Phone Call To Patient/Provider Brief (5-10min) [id number] 015 AVANI DAY [facility] Screening Test Of Visual Acuity, Quantitative, Bilateral Screening Test Of Visual Acuity, Quantitative, Bilateral [id number] [id number] LINDEN BUENO [facility] Non-Physician Phone Call To Patient/Provider Brief (5-10min) Non-Physician Phone Call To Patient/Provider Brief (5-10min) [id number] CATHY MCCARTHY [facility] Non-Physician Phone Call To Pt/Provider Intermed (11-20 min) Non-Physician Phone Call To Pt/Provider Intermed (11-20 min) [id number] [id number] DARREN FRANK Start of call: [phone] End of call: 1035 DoD Ophthalmoscopy Extended, With Retinal Drawing - Initial Ophthalmoscopy Extended, With Retinal Drawing - Initial [id number] [id number] KAMILA FARRIS Ophthalmological New Patient Start Comprehensive Care Ophthalmological New Patient Start Comprehensive Care [id number] [phone] KAMILA FARRIS Trans-Vaginal Ultrasound Trans-Vaginal Ultrasound [id number] SKINNY PALMER Non-Physician Phone Call To Patient/Provider Brief (5-10min) Non-Physician Phone Call To Patient/Provider Brief (5-10min) [id number] [phone] DARREN FRANK Start of call: [phone] End of call: 1305 Start of call: 1555 End of call: 1605 DoD Non-Physician Phone Call To Patient/Provider Brief (5-10min) Non-Physician Phone Call To Patient/Provider Brief (5-10min) [id number] 012 KAVITHA BURROUGHS Non-Physician Phone Call To Patient/Provider Brief (5-10min) Non-Physician Phone Call To Patient/Provider Brief (5-10min) [id number] 011 KAVITHA BURROUGHS Cervical or vaginal cancer screening; pelvic and clinical breast examination 011 JANINE MADRID Screening papanicolaou smear; obtaining, preparing and conveyance of cervical or vaginal smear to laboratory 011 JANINE MADRID Urinalysis Urinalysis [id number] 011 EVERETTE GAITAN Compre ion bandage, roll 011 JIHAN BIANCHI Obstetrical Services Care Visit Obstetrical Services Care Visit [id number] 009 HAYDEN GABRIEL Screening papanicolaou smear; obtaining, preparing and conveyance of cervical or vaginal smear to laboratory 009 HAYDEN GABRIEL Non-Stre Test (___ 0,2) Non-Stress Test (___ 0,2) 19927 009 OMKAR WALKER Fern test 009 OMKAR WALKER Non-Stre Test (___ 0,2) Non-Stress Test (___ 0,2) 45447 009 RADHA SENTHILMALKA MCALLISTER [facility] OB Services Antepartum Care Only Subsequent Single Visit OB Services Antepartum Care Only Subsequent Single Visit 0502F 009 GARCIASENTHIL Jacobs ARY [facility] OB Services Antepartum Care Only Subsequent Single Visit OB Services Antepartum Care Only Subsequent Single Visit 0502F 009 DENISE, OMKAR GUNN [facility] OB Services Antepartum Care Only Subsequent Single Visit OB Services Antepartum Care Only Subsequent Single Visit 0502F 009 DENISE, OMKAR GUNN [facility] OB Services Antepartum Care Only Subsequent Single Visit OB Services Antepartum Care Only Subsequent Single Visit 0502F 009 DENISE, OMKAR GUNN [facility] OB Services Antepartum Care Only Subsequent Single Visit OB Services Antepartum Care Only Subsequent Single Visit 0502F 009 DENISE, OMKAR GUNN [facility] Non-Stre Test (___ 0,2) Non-Stress Test (___ 0,2) 84143 009 JUAN PABLO MILLER [facility] Ultrasound Obstetric Limited Evaluation Ultrasound Obstetric Limited Evaluation 31614 009 HAYDEN GABRIEL [facility] OB Services Antepartum Care Only Subsequent Single Visit OB Services Antepartum Care Only Subsequent Single Visit 0502F 009 HAYDEN GBARIEL [facility] Vaginal Wet [place] Vaginal [place] 27616 009 HAYDEN GABRIEL [facility] Fern test 009 HAYDEN GABRIEL [facility] Wet selma, including preparations of vaginal, cervical or skin specimens 009 HAYDEN GABRIEL [facility] OB Services Antepartum Care Only Subsequent Single Visit OB Services Antepartum Care Only Subsequent Single Visit 0502F 009 DENISE, OMKAR GUNN [facility] OB Services Antepartum Care Only Subsequent Single Visit OB Services Antepartum Care Only Subsequent Single Visit 0502F 008 RADHA SENTHILMALKA MCALLISTER [facility] OB Services Antepartum Care Only Subsequent Single Visit OB Services Antepartum Care Only Subsequent Single Visit 0502F 008 DENISE, OMKAR GUNN [facility] OB Services Antepartum Care Only First Visit, With Report OB Services Antepartum Care Only First Visit, With Report 0500F 008 OMKAR WALKER [facility] Wet selma, including preparations of vaginal, cervical or skin specimens 008 OMKAR WALKER [facility] Screening papanicolaou smear; obtaining, preparing and conveyance of cervical or vaginal smear to laboratory 008 OMKAR WALKER [facility] Screening papanicolaou smear; obtaining, preparing and conveyance of cervical or vaginal smear to laboratory 008 DYLAN MORAES [facility] Test Test 59343 008 KHADIJAHQUANG FRAZIER [facility] Pulse Oximetry Pulse Oximetry 28520 008 CATERINA BONDS [facility] Supervised Injection Intramuscular Supervised Injection Intramuscular 22321 007 JOSUE BETTENCOURT [facility] Cervical Pap Smear Cervical Pap Smear 82336 18/08 006 EVERETTE HERNADEZ [facility] Colposcopy Cervix With Endocervical Curettage Colposcopy Cervix With Endocervical Curettage 33874 006 EVERETTE HERNADEZ [facility] Birthing cla es, non-physician provider, per se ion 005 [facility] Childbirth preparation/Lamaze cla es, non-physician provider, per se ion 005 [facility] Birthing cla es, non-physician provider, per se ion 005 [facility] Childbirth preparation/Lamaze cla es, non-physician provider, per se ion 005 [facility] Childbirth preparation/Lamaze cla es, non-physician provider, per se ion 005 [facility] Birthing cla es, non-physician provider, per se ion 005 [facility] Birthing cla es, non-physician provider, per se ion 005 [facility] Childbirth preparation/Lamaze cla es, non-physician provider, per se ion 005 [facility] Colpos[facility] Colposcopy 60548 005 MICKIE MARCIAL [facility] Social History Combined list of available smoking, tobacco, and other social history from Department of Defense and Veterans Affairs facilities. Social History Type Response Date Comment [facility] e Smoking Status Never (less than 100 in lifetime) 11/12/2018 Unknown Organization Sex Representation Female (finding) 03/09/2018 Unknown Organization Sexual Orientation [facility] [place] Gender identity [place] This section is an empty social history section. [facility] Assessment and Plan Combined list of future care activities from Department of Defense and Veterans Affairs facilities (e.g., assessment and plan notes, appointments, orders, and referrals). Additional future care activities may be listed in the Plan of Care section. Result Assessment and Plan Date Source Assessment and Plan Extracted from:Title : Ophthalmology clinic Author: CHAYO PARIS Date: 11/16/18 1. E sotropia Longstanding esotropia OD, patient reports new, e xtreme discomfort and inability to do daily activities due to eye fatigue, and h eadaches. Headaches are being treated with Topamax. I t was previously noted that she might have slight anisocoria. Discussed that symptoms are usually related to strabismus and may use readers for some alleviation of stress. Possibly decompensation. Prism will unlikely help as she is suppressing OD most of the time and angle is large. 2. N ystagmus Possible new onset nystagmus, gaze evoked OU. RTC for further testing 1-2 weeks, neurological evaluation. RTC for undilated refraction. Chayo Paris, NATY Staff Umbrella Supervisor [facility] Orders: Office Visit Level 2 New [id number] Extracted from:Title: SMITH,Adjustment D/O Author: MELISSA BAUMANN Date: 11/12/18 Depressive disorder F /u Dr Eden or [facility]. Generalized anxiety disorder F /u Dr Eden or [facility]. Headaches F /U Neurology and Ophthalmology referrals. I would restart the Topamax. Ordered: topiramate, See Instructions, Take 1 tablet Orally Daily x 2-3 days then bid for headaches, # 60 tabs, 1 total refill(s), Maintenance, [facility] pharmacy dispense (Rx) [[facility] Rx: #60 x 1/1 refills remaining, last filled 11/12/18] Orders: Medical Referral Request, 11/12/2018, Routine, Ophthalmology, 37Yo female S/P repeated eye surgery now moving with worsening daily headaches, blurred vision and forgetfullness. Please evaluate., Evaluate and Treat, Future Order, Appoint to [facility], [id number] Medical Referral Request, 11/12/2018, Routine, Neurology, 37YO female S/P repeated eye surgery now moving with worsening daily headaches, blurred vision and forgetfullness. Please evaluate again after seen 04/19/18 by Giacomo Tadeo. Thanks, Evaluate and Treat, Future Order, Soraya... Office Visit Level 3 Est [id number] Addendum by MELISSA BAUMANN on November 12, 2018 11:56:51 PDT Pt is moving back to [place] but has not secured MRI copies as requested 04/19/18. Addendum by ERYN RODRIGEZ on December 04, 2018 14:25:26 PDT Pt kept appt with O phthalmology Neuro C bishop on 11/27/18 p federico Baumann's r eferral request on Assessment and Plan 1. Latent hyperopia: Patient is a 38 yo female with history of strabismus s/p multiple surgeries with complaint of eyestrain and headaches that have worsened in frequency and intensity over the last year and seem to be m ost affected by reading. S he was evaluated by optometry and found to be hyperopic and was given an Rx which she has yet to fill. She has the expected findings for a patient with congenital strabismus including alternate fixation, mild esotropia, mild amblyopia OD, DVD, and lack of steroacuity. She does have a mild physiologic nystagmus but nothing that appears pathologic on examination today. Given her age and prescription her symptoms are most consistent with latent hyperopia and early presbyopia. Encouraged patient to fill her Rx and wear the majority of the day. Instructed patient that it may take time for her to become accustomed to wearing her new rx. Also encouraged her to begin wearing reading glasses and tr try multiple infante to find what was most comfortable to her likely +2.50 t o + 3 .00 Shawn Meza MD [facility]. . Ophthalmology PGY-3 [facility] I, Dr.Marybeth Snyder, reviewed the documentation of care provided by the resident and agreed with the resident's findings and plan of care. Susan Snyder MD Neuro-Ophthalmology Staff [facility] Extracted from:Title: neck, back pain Author: LALA GUERRERO Date: 07/24/18 1. C ervicalgia I ce, heat, stretching, gentle exercise such as walking. avoid prolonged sitting. PT. Expect 2-12 weeks of pain with each episode. Modify activities to reduce risk of aggravating the injury. Medications play very limited role, OK to use acetaminophen according to instructions. Ordered: Office Visit Level 3 Est 00521 2. S ciatica I ce, heat, stretching, gentle exercise. PT. Expect 2-12 weeks of pain with each episode. Modify activities to reduce risk of aggravating the injury. Medications play very limited role, OK to use acetaminophen according to instructions. Ordered: Office Visit Level 3 Est 10623 Screening status Ordered: multivitamin with iron, 1 cap, Oral, Daily, Take one capsule daily between meals to improve absorption, # 30 cap, 3 total refill(s), Maintenance, [facility] pharmacy dispense (Rx) [Not filled] Office Visit Level 3 Est 51633 Orders: multivitamin, 1 tabs, Oral, Daily, Take one tablet by mouth daily as vitamin supplementation, # 90 tabs, 3 total refill(s), Maintenance, [facility] pharmacy dispense (Rx) [[facility] Rx: #90 x 3/3 refills remaining, last filled 07/23/18] Medical Referral Request Extracted from:Title: back and neck pain Author: LALA GUERRERO Date: 07/23/18 1. C ervicalgia P T referral expect chronic recurrence, similar course Ordered: Office Visit Level 3 Est 91628 2. S ciatica P T referral Ice, heat, stretching, gentle exercise such as walking. avoid prolonged sitting. Expect 2-12 weeks of pain with each episode. Modify activities to reduce risk of aggravating the injury. Medications play very limited role, OK to use acetaminophen according to instructions. Ordered: Office Visit Level 3 Est 95448 Orders: multivitamin, 1 tabs, Oral, Daily, Take one tablet by mouth daily as vitamin supplementation, # 90 tabs, 3 total refill(s), Maintenance, [facility] pharmacy dispense (Rx) [[facility] Rx: #90 x 3/3 refills remaining, last filled 07/23/18] Medical Referral Request Extracted from:Title: hematuria Author: LALA GUERRERO Date: 05/08/18 Blood in urine - hematuria 2 -5 rbc on micro. no symptoms. recent creatinine normal advise no further workup at this time. followup if worse or concerned with this or other new symptoms. Ordered: Office Visit Level 3 Est 19656 Extracted from:Title: HEMATURIA Author: BJORN ROMO Date: 04/30/18 1. H ematuria D iscussed Multistix performed earlier and will repeat study in clinic. Encouraged to increase water intake and encouraged f/u if symptoms persist or worsen Ordered: Office Visit Level 3 Est 22317 Screening status Ordered: Culture,Urine Urinalysis Microscopic JUNI Vang Physician [employer] [facility] Extracted from:Title: SORE THROAT Author: BJORN ROMO Date: 04/16/18 Sore throat Encouraged warm salt water gargles and a nti-inflammatories as directed. Ordered: Culture,Throat Office Visit Level 3 Est 22786 Orders: MA/Nurse Collect MA/Nurse Collect JUNI Vang Physician [employer] [facility] Extracted from:Title: headaches Author: LALA GUERRERO Date: 03/13/18 1. H eadaches more than 1 headache type-chronic recurrent headaches including at least tension headaches, may also have migraines keep headache diary-bring to neuro appt. neurology consultation requested followup if worse or concerned with this or other new symptoms. Lala Guerrero MD Family [facility] Extracted from:Title: Rescheduled Appt Author: LINDY CABEZAS Date: 03/12/18 Patient had appt this AM at 1030 headache concerns. Appointment cancelled due to power outage (nursing intake was already completed, provider unable to see patient). Attempted to reach patient to re-schedule appointment. No answer. LVM instructing patient to call nurse's line at [phone] to reschedule appointment. 11/07/[address] [place] [address] Assessment and Plan Extracted from:Title : Ophthalmology clinic Author: CHAYO PARIS Date: 11/16/18 1. E sotropia Longstanding esotropia OD, patient reports new, e xtreme discomfort and inability to do daily activities due to eye fatigue, and h eadaches. Headaches are being treated with Topamax. I t was previously noted that she might have slight anisocoria. Discussed that symptoms are usually related to strabismus and may use readers for some alleviation of stress. Possibly decompensation. Prism will unlikely help as she is suppressing OD most of the time and angle is large. 2. N ystagmus Possible new onset nystagmus, gaze evoked OU. RTC for further testing 1-2 weeks, neurological evaluation. RTC for undilated refraction. Chayo Paris, OD Staff [employer] [facility] Orders: Office Visit Level 2 New 34286 Extracted from:Title: SMITH,Adjustment D/O Author: MELISSA BAUMANN Date: 11/12/18 Depressive disorder F /u Dr Eden or [facility]. Generalized anxiety disorder F /u Dr Eden or [facility]. Headaches F /U Neurology and Ophthalmology referrals. I would restart the Topamax. Ordered: topiramate, See Instructions, Take 1 tablet Orally Daily x 2-3 days then bid for headaches, # 60 tabs, 1 total refill(s), Maintenance, [facility] pharmacy dispense (Rx) [[facility] Rx: #60 x 1/1 refills remaining, last filled 11/12/18] Orders: Medical Referral Request, 11/12/2018, Routine, Ophthalmology, 37Yo female S/P repeated eye surgery now moving with worsening daily headaches, blurred vision and forgetfullness. Please evaluate., Evaluate and Treat, Future Order, Appoint to [facility], [id number] Medical Referral Request, 11/12/2018, Routine, Neurology, 37YO female S/P repeated eye surgery now moving with worsening daily headaches, blurred vision and forgetfullness. Please evaluate again after seen 04/19/18 by Giacomo Tadeo. Thanks, Evaluate and Treat, Future Order, Soraya... Office Visit Level 3 Est 85943 Addendum by MELISSA BAUMANN on November 12, 2018 11:56:51 PDT Pt is moving back to [place] but has not secured MRI copies as requested 04/19/18. Addendum by ERYN RODRIGEZ on December 04, 2018 14:25:26 PDT Pt kept appt with O phthalmology Neuro Jerry alas on 11/27/18 rossy Baumann's r eferral request on Assessment and Plan 1. Latent hyperopia: Patient is a 38 yo female with history of strabismus s/p multiple surgeries with complaint of eyestrain and headaches that have worsened in frequency and intensity over the last year and seem to be m ost affected by reading. S he was evaluated by optometry and found to be hyperopic and was given an Rx which she has yet to fill. She has the expected findings for a patient with congenital strabismus including alternate fixation, mild esotropia, mild amblyopia OD, DVD, and lack of steroacuity. She does have a mild physiologic nystagmus but nothing that appears pathologic on examination today. Given her age and prescription her symptoms are most consistent with latent hyperopia and early presbyopia. Encouraged patient to fill her Rx and wear the majority of the day. Instructed patient that it may take time for her to become accustomed to wearing her new rx. Also encouraged her to begin wearing reading glasses and tr try multiple infante to find what was most comfortable to her likely +2.50 t o + 3 .00 Shawn Meza MD [facility]. Ophthalmology PGY-3 [facility] I, Dr.Marybeth Snyder, reviewed the documentation of care provided by the resident and agreed with the resident's findings and plan of care. Susan Snyder MD Neuro-Ophthalmology Staff [facility] Extracted from:Title: neck, back pain Author: LALA GUERRERO Date: 07/24/18 1. C ervicalgia I ce, heat, stretching, gentle exercise such as walking. avoid prolonged sitting. PT. Expect 2-12 weeks of pain with each episode. Modify activities to reduce risk of aggravating the injury. Medications play very limited role, OK to use acetaminophen according to instructions. Ordered: Office Visit Level 3 Est 82811 2. S ciatica I ce, heat, stretching, gentle exercise. PT. Expect 2-12 weeks of pain with each episode. Modify activities to reduce risk of aggravating the injury. Medications play very limited role, OK to use acetaminophen according to instructions. Ordered: Office Visit Level 3 Est 93697 Screening status Ordered: multivitamin with iron, 1 cap, Oral, Daily, Take one capsule daily between meals to improve absorption, # 30 cap, 3 total refill(s), Maintenance, [facility] pharmacy dispense (Rx) [Not filled] Office Visit Level 3 Est 40376 Orders: multivitamin, 1 tabs, Oral, Daily, Take one tablet by mouth daily as vitamin supplementation, # 90 tabs, 3 total refill(s), Maintenance, [facility] pharmacy dispense (Rx) [[facility] Rx: #90 x 3/3 refills remaining, last filled 07/23/18] Medical Referral Request Extracted from:Title: back and neck pain Author: LALA GUERRERO Date: 07/23/18 1. C ervicalgia P T referral expect chronic recurrence, similar course Ordered: Office Visit Level 3 Est 34566 2. S ciatica P T referral Ice, heat, stretching, gentle exercise such as walking. avoid prolonged sitting. Expect 2-12 weeks of pain with each episode. Modify activities to reduce risk of aggravating the injury. Medications play very limited role, OK to use acetaminophen according to instructions. Ordered: Office Visit Level 3 Est 46658 Orders: multivitamin, 1 tabs, Oral, Daily, Take one tablet by mouth daily as vitamin supplementation, # 90 tabs, 3 total refill(s), Maintenance, [facility] pharmacy dispense (Rx) [[facility] Rx: #90 x 3/3 refills remaining, last filled 07/23/18] Medical Referral Request Extracted from:Title: hematuria Author: LALA GUERRERO Date: 05/08/18 Blood in urine - hematuria 2 -5 rbc on micro. no symptoms. recent creatinine normal advise no further workup at this time. followup if worse or concerned with this or other new symptoms. Ordered: Office Visit Level 3 Est 14648 Extracted from:Title: HEMATURIA Author: BJORN ROMO Date: 04/30/18 1. H ematuria D iscussed Multistix performed earlier and will repeat study in clinic. Encouraged to increase water intake and encouraged f/u if symptoms persist or worsen Ordered: Office Visit Level 3 Est 79756 Screening status Ordered: Culture,Urine Urinalysis Microscopic JUNI Vang Physician [employer] [facility] Extracted from:Title: SORE THROAT Author: BJORN ROMO Date: 04/16/18 Sore throat Encouraged warm salt water gargles and a nti-inflammatories as directed. Ordered: Culture,Throat Office Visit Level 3 Est 33349 Orders: MA/Nurse Collect MA/Nurse Collect JUNI Vang Physician [employer] [facility] Extracted from:Title: headaches Author: LALA GUERRERO Date: 03/13/18 1. H eadaches more than 1 headache type-chronic recurrent headaches including at least tension headaches, may also have migraines keep headache diary-bring to neuro appt. neurology consultation requested followup if worse or concerned with this or other new symptoms. Lala Guerrero MD Family [facility] Extracted from:Title: Rescheduled Appt Author: LINDY CABEZAS Date: 03/12/18 Patient had appt this AM at 1030 headache concerns. Appointment cancelled due to power outage (nursing intake was already completed, provider unable to see patient). Attempted to reach patient to re-schedule appointment. No answer. M instructing patient to call nurse's line at [phone] to reschedule appointment. 11/07/[address] [place] [address] Functional Status Combined list of recent functional and cognitive assessments recorded at [employer] ([facility]VA Functional [place] Measurement (FIM) Scale: 1 = Total Assistance (Subject = 0% +), 2 = Maximal Assistance (Subject = 25% +), 3 = Moderate Assistance (Subject = 50% +), 4 = Minimal Assistance (Subject = 75% +), 5 = Supervision, 6 = Modified [place] (Device), 7 = Complete [place] (Timely, Safely). Assessment Date/Time Source Assessment Type Assessment Skill Assessment Score Assessment Details No data available for this section
[2024-11-06 21:06] VITALS: BP 120/84; PULSE 86; RESP 16; TEMP 36.9; O2SAT 97; BMI 26.8
--- NOTE | 2024-11-06 21:11 | CRLHL7_ITS ---
For Patients: As a result of the Century Cures Act, medical imaging exams and procedure reports are released immediately into your electronic medical record. You may view this report before your referring provider. If you have questions, please contact your health care provider. INDICATION: Left foot pain, twisted, injury, fall, pain in left foot TECHNIQUE: Foot radiograph 3 views left COMPARISON: None FINDINGS: Bone: No acute fractures or aggressive bone lesions are identified. Joint: The visualized hindfoot, midfoot, and forefoot joints are unremarkable in appearance. No significant ankle effusion is seen. Soft tissue: Unremarkable. No radiopaque foreign bodies are seen. IMPRESSION: 1. No acute osseous injuries or abnormalities are noted. Dictated by: Nicholas Sosa MD @ 11/06/2024 21:44:50 (Electronically Signed)
--- NOTE | 2024-11-06 22:47 | ED.GENADULT ---
HPI - General Adult General Chief complaint: Extremity Pain/Injury, Lower Stated complaint: L toe/foot injury Time Seen by Provider: 11/06/24 22:38 History of Present Illness HPI narrative: Pt fell down a step while carrying furniture and landed on Left foot, has discomfort and pain in toes and foot, foot feels heavy and full. Ambulatory into triage. 43-year-old woman presenting to the emergency department following an injury to her left foot. She was carrying furniture? down some stairs and some a missed step and describes a hyperflexion of the forefoot. She has pain in her toes. Her foot also just feels strange. She feels like she can not move it or extend the toes. Was able to walk into the ER. Related Data Home Medications ?Medication ?Instructions ?Recorded ?Confirmed No Known Home Medications 11/06/24 11/06/24 Allergies Allergy/AdvReac Type Severity Reaction Status Date / Time No Known Drug Allergies Allergy Verified 11/06/24 21:11 Review of Systems Status of ROS: Reports: 6 or more systems reviewed and unremarkable except as noted in History and below PFSH PFS Social History Smoking Status: Never smoker Second hand tobacco smoke exposure: No How often do you have a drink containing alcohol: never AUDIT-C Alcohol total score: 0 Non-prescribed substance use: denies use Exam Narrative: Exam Narrative: Pleasant. NAD. Moving all extremities without difficulty though examination of the left foot does reveal a little bruising underneath the 4th toe; on the plantar surface. Does not have discrete bony pain to palpation. She appears to be unable to dorsiflex the 2nd through 4th toes however can dorsiflex and extend those toes with tension applied when dorsiflexing at the ankle. I do not appreciate ligamentous disruption. No ankle area pain to palpation. No swelling. Const: Vital Signs, click to edit/add: Vital Signs - 24 hr 11/06/24 21:06 Temperature 98.4 F Pulse Rate [Pulse Oximeter] 86 Respiratory Rate 16 Blood Pressure [Ri ght Upper Arm] 120/84 Pulse Oximetry 97 Oxygen Delivery Me thod Room Air Documenting provider has reviewed patient's vital signs: yes Course Vital Signs Vital signs: Initial Vital Signs Temperature 98.4 F 11/06/24 21:06 Temperature Source Temporal Artery Scan 11/06/24 21:06 Pulse Rate 86 11/06/24 21:06 Respiratory Rate 16 11/06/24 21:06 Blood Pressure 120/84 11/06/24 21:06 Blood Pressure Mean 96 11/06/24 21:06 Blood Pressure Position Sitting 11/06/24 21:06 Pulse Oximetry 97 11/06/24 21:06 Oxygen Delivery Method Room Air 11/06/24 21:06 Vital Signs Temperature 98.4 F 11/06/24 21:06 Pulse Rate 86 11/06/24 21:06 Respiratory Rate 16 11/06/24 21:06 Blood Pressure 120/84 11/06/24 21:06 Pulse Oximetry 97 11/06/24 21:06 Oxygen Delivery Method Room Air 11/06/24 21:06 Temperature 98.4 F 11/06/24 23:55 Pulse Rate 80 11/06/24 23:55 Respiratory Rate 16 11/06/24 23:55 Blood Pressure 118/74 11/06/24 23:55 Pulse Oximetry 97 11/06/24 23:55 Oxygen Delivery Method Room Air 11/06/24 23:55 Medical Decision Making MDM Narrative Medical decision making narrative: I would have concerns of potential fracture with plantar bruising. Did do an x-ray of the left foot. I do not appreciate on initial review, bony abnormality although just lateral to the 4th toe there is a small flake of density. This might be a chip of some sort. I wonder if foot in some ways is just stunned, so to speak. INDICATION: Left foot pain, twisted, injury, fall, pain in left foot TECHNIQUE: Foot radiograph 3 views left COMPARISON: None FINDINGS: Bone: No acute fractures or aggressive bone lesions are identified. Joint: The visualized hindfoot, midfoot, and forefoot joints are unremarkable in appearance. No significant ankle effusion is seen. Soft tissue: Unremarkable. No radiopaque foreign bodies are seen. IMPRESSION: 1. No acute osseous injuries or abnormalities are noted. Dictated by: Nicholas Sosa MD @ 11/06/2024 21:44:50 Did offer a stiff-soled sandal. Initially declined ultimately accepted. Remains ambulatory. See patient discharge plan for further discussion Can take up to 600 mg of ibuprofen per dose or up to 1000 mg of acetaminophen per dose. These can be combined. Elevate foot for comfort. I would suggest a stiffer soled shoe/boot. I would ice your foot as discussed 2-3 times daily over the next few days. It seems that you might have a tiny chip fracture near the base of that 4th toe. If still struggling with function after a week, would follow up to be re-evaluated. Discharge Plan Discharge Clinical Impression: Foot sprain Patient Disposition: Home w/ Parent or Adult Condition: Stable Additional Instructions: Can take up to 600 mg of ibuprofen per dose or up to 1000 mg of acetaminophen per dose. These can be combined. Elevate foot for comfort. I would suggest a stiffer soled shoe/boot. I would ice your foot as discussed 2-3 times daily over the next few days. It seems that you might have a tiny chip fracture near the base of that 4th toe. If still struggling with function after a week, would follow up to be re-evaluated. Prescriptions: No Action No Known Home Medications Follow Up/Referrals: Provider,Not a Local [Primary Care Provider, Family Practice] Stand Alone Forms: MyHealth Info Instructions
--- OUTSIDE RECORDS SUMMARY | 2024-11-06 23:25 | XMS_ITS | Clinical Summary ---
Author Organization [facility] Address [address] [place] [id number] Care Team Providers Care Credit Risk Analytics Manager Name Role Phone Pcp, No Primary Care [...] 2 Tablets by mouth. Active rizatriptan (MAXALT HAIRCUTTER) 10 mg disintegrating tabletIndications:M igraine syndrome Take [...] on file Legal Sex Female 4:06 PM INPATIENT PHARMACIST Gender Identity Not on file Sexual Orientation Not on file Obstetrics History Last Filed Vital Signs Vital Sign Reading Time Taken Comments Blood Pressure 143/78 05/06/2024 10:01 AM INPATIENT PHARMACIST Pulse 80 05/06/2024 10:01 AM INPATIENT PHARMACIST Temperature 36.4 C (97.6 F) 05/06/2024 10:01 AM INPATIENT PHARMACIST Respiratory Rate 14 05/06/2024 10:01 AM INPATIENT PHARMACIST Oxygen Saturation 100% 05/06/2024 10:01 AM INPATIENT PHARMACIST Inhaled Oxygen Concentration - - Weight 72.2 kg (159 lb 3.2 oz) 05/06/2024 10:01 AM INPATIENT PHARMACIST Height - - Body Mass Index - [...] age to complete this topic Care Teams Credit Risk Analytics Manager Relationship Specialty Start Date End Date Pcp, No . PCP - General 05/25/23
--- OUTSIDE RECORDS SUMMARY | 2024-11-06 23:25 | XMS_ITS | Clinical Summary ---
Author Organization [facility] Address [address] [address] Phone Care Team Providers Care Analysis Tester Name Role Phone Unavailable Primary Care Provider [...] of Treatment Not on file Insurance Wolf [facility] [place] [address] [facility] [place]
--- OUTSIDE RECORDS SUMMARY | 2024-11-06 23:25 | XMS_ITS | Clinical Summary ---
Author Organization [facility] Address [address] [place] [id number] Care Team Providers Care Software Analyst Name Role Phone No Ref-Primary, Physician Primary Care Provider Kim Peralta CN Unavailable [phone] Leta Valadez PA-C Unavailable Rubi Erickson PA-C Unavailable Allergies No known active allergies Medications aspirin-acetamin ophen-caffeine (EXCEDRIN MIGRAINE) 250-250-65 MG tablet Take 2 tablets by mouth Active rizatriptan (MAXALT-DAY HAUL [employer]PER[employer]OR) 10 MG ODTIndications:M igraine without aura and [...] in an abandoned building, in an overnight alf, or couch-surfing.) Yes 08/15/2023 Are you worried [...] on file Legal Sex Female 1:12 PM BAND CUTTING MACHINE OPERATOR Gender Identity Not on file Sexual Orientation Not on file Last Filed Vital Signs Vital Sign Reading Time Taken Comments Blood Pressure 128/88 09/12/2023 1:54 PM CDT Pulse 77 09/12/2023 1:54 PM CDT Temperature 36.6 C (97.9 F) 08/15/2023 4:35 PM BAND CUTTING MACHINE OPERATOR Respiratory Rate 16 08/15/2023 4:35 PM BAND CUTTING MACHINE OPERATOR Oxygen Saturation 98% 09/12/2023 1:54 PM CDT [...] COMPREHENSIVE METABOLIC PANEL Routine 08/31/2023 4:08 PM BAND CUTTING MACHINE OPERATOR Annual physical exam LIPID REFLEX TO DIRECT LDL PANEL Routine 08/31/2023 4:08 PM BAND CUTTING MACHINE OPERATOR Annual physical exam GYNECOLOGIC CYTOLOGY Routine 08/31/2023 3:47 PM BAND CUTTING MACHINE OPERATOR Cervical cancer screening HPV HIGH RISK TYPES DNA CERVICAL Routine 08/31/2023 3:47 PM BAND CUTTING MACHINE OPERATOR Cervical cancer screening MA SCREENING BILATERAL W/ DAVID Routine 08/01/2023 11:22 AM BAND CUTTING MACHINE OPERATOR Visit for screening mammogram from Last 3 Months or Most Recently Relevant to Health Maintenance Results * (ABNORMAL) Lipid panel reflex to direct LDL Non-fasting (08/31/2023 4:08 PM BAND CUTTING MACHINE OPERATOR) Cholesterol 170 <200 mg/dL 09/01/2023 3:44 PM BAND CUTTING MACHINE OPERATOR [facility] Triglycerides 160(H) <150 mg/dL 09/01/2023 3:44 PM BAND CUTTING MACHINE OPERATOR [facility] Direct Measure HDL 53 >=50 mg/dL 09/01/2023 3:44 PM BAND CUTTING MACHINE OPERATOR [facility] LDL Cholesterol Calculated 85 <=100 mg/dL 09/01/2023 3:44 PM BAND CUTTING MACHINE OPERATOR [facility] Non HDL Cholesterol 117 <130 mg/dL 09/01/2023 3:44 PM BAND CUTTING MACHINE OPERATOR [facility] Patient Fasting > 8hrs? No 09/01/2023 3:44 PM BAND CUTTING MACHINE OPERATOR [facility] Blood BLOOD SPECIMEN / Unknown Venipuncture / Unknown 08/31/2023 4:08 PM BAND CUTTING MACHINE OPERATOR 08/31/2023 4:08 PM BAND CUTTING MACHINE OPERATOR Narrative [facility] - 09/01/2023 3:44 PM BAND CUTTING MACHINE OPERATOR Cholesterol Desirable: <200 mg/dL Triglycerides Normal: Less [...] equal to 220 mg/dL us Kim Peralta [facility] - BLOOD ORDERABLES Final Result [facility] [address] [facility], [address] [place] [address], [facility] [phone] * Comprehensive metabolic panel (BMP + Alb, Alk Phos, ALT, AST, Total. Bili, TP) (08/31/2023 4:08 PM BAND CUTTING MACHINE OPERATOR) Sodium 139 135 - 145 mmol/L 09/01/2023 3:44 PM BAND CUTTING MACHINE OPERATOR [facility] Comment:Reference intervals for this test were updated on 03/21/2023 to more accurately reflect our healthy population. There may be differences in the flagging of prior results with similar values performed with this method. Interpretation of those prior results can be made in the context of the updated reference intervals. Potassium 4.2 3.4 - 5.3 mmol/L 09/01/2023 3:44 PM BAND CUTTING MACHINE OPERATOR [facility] Carbon Dioxide (CO2) 25 22 - 29 mmol/L 09/01/2023 3:44 PM BAND CUTTING MACHINE OPERATOR [facility] Anion Gap 10 7 - 15 mmol/L 09/01/2023 3:44 PM BAND CUTTING MACHINE OPERATOR [facility] Urea Nitrogen 19.7 6.0 - 20.0 mg/dL 09/01/2023 3:44 PM BAND CUTTING MACHINE OPERATOR [facility] Creatinine 0.82 0.51 - 0.95 mg/dL 09/01/2023 3:44 PM BAND CUTTING MACHINE OPERATOR [facility] GFR Estimate >90 >60 mL/min/1. 73m2 09/01/2023 3:44 PM BAND CUTTING MACHINE OPERATOR [facility] Calcium 9.7 8.6 - 10.0 mg/dL 09/01/2023 3:44 PM BAND CUTTING MACHINE OPERATOR [facility] Chloride 104 98 - 107 mmol/L 09/01/2023 3:44 PM BAND CUTTING MACHINE OPERATOR [facility] Glucose 85 70 - 99 mg/dL 09/01/2023 3:44 PM BAND CUTTING MACHINE OPERATOR [facility] Alkaline Phosphatase 67 40 - 150 U/L 09/01/2023 3:44 PM BAND CUTTING MACHINE OPERATOR [facility] Comment:Reference intervals for this test were updated on 05/09/2023 to more accurately reflect our healthy population. There may be differences in the flagging of prior results with similar values performed with this method. Interpretation of those prior results can be made in the context of the updated reference intervals. AST 21 0 - 45 U/L 09/01/2023 3:44 PM BAND CUTTING MACHINE OPERATOR [facility] Comment:Reference intervals for this test were updated on 12/05/2022 to more accurately reflect our healthy population. There may be differences in the flagging of prior results with similar values performed with this method. Interpretation of those prior results can be made in the context of the updated reference intervals. ALT 20 0 - 50 U/L 09/01/2023 3:44 PM BAND CUTTING MACHINE OPERATOR [facility] Comment:Reference intervals for this test were updated on 12/05/2022 to more accurately reflect our healthy population. There may be differences in the flagging of prior results with similar values performed with this method. Interpretation of those prior results can be made in the context of the updated reference intervals. Protein Total 7.0 6.4 - 8.3 g/dL 09/01/2023 3:44 PM BAND CUTTING MACHINE OPERATOR [facility] Albumin 4.7 3.5 - 5.2 g/dL 09/01/2023 3:44 PM BAND CUTTING MACHINE OPERATOR [facility] Bilirubin Total 0.3 <=1.2 mg/dL 09/01/2023 3:44 PM BAND CUTTING MACHINE OPERATOR [facility] Blood BLOOD SPECIMEN / Unknown Venipuncture / Unknown 08/31/2023 4:08 PM BAND CUTTING MACHINE OPERATOR 08/31/2023 4:08 PM BAND CUTTING MACHINE OPERATOR us Kim Peralta [facility] - BLOOD ORDERABLES Final Result [facility] [address] [facility], [address] [phone] [phone] * Pap screen with HPV - recommended age 30 - 65 years (08/31/2023 3:47 PM BAND CUTTING MACHINE OPERATOR) Interpretation Negative for Intraepithelial Lesion or Malignancy [...] component of this testing was completed at [facility] 09/04/2023 12:58 PM CDT [facility] Brushing CERVIX UTERI STRUCTURE / Unknown Non-blood Collection / Unknown 08/31/2023 3:47 PM BAND CUTTING MACHINE OPERATOR 08/31/2023 4:37 PM BAND CUTTING MACHINE OPERATOR us Kim Peralta CNM LAB - BEAKER AP Final R esult [facility] Specialty Lab [address] [facility], [address] [place] [phone] * HPV High Risk Types DNA Cervical (08/31/2023 3:47 PM BAND CUTTING MACHINE OPERATOR) Other HR HPV Negative Negative 09/06/2023 2:30 PM CDT [facility] HPV16 DNA Negative Negative 09/06/2023 2:30 PM CDT [facility] HPV18 DNA Negative Negative 09/06/2023 2:30 PM CDT [facility] FINAL DIAGNOSIS This patient's sample is negative for HPV DNA. This test was developed and its performance characteristics determined by the [facility], Molecular Diagnostics Laboratory. It has not [...] Non-blood Collection / Unknown 08/31/2023 3:47 PM BAND CUTTING MACHINE OPERATOR 09/05/2023 8:24 AM CDT us Kim Peralta [facility] - BLOOD ORDERABLES Final Result [facility] [address] [facility], [address] [place] [phone] * MA Screen Bilateral w/David (08/01/2023 11:22 AM BAND CUTTING MACHINE OPERATOR) Anatomical Region Laterality Modality Breast Bilateral Mammography Impressions 08/02/2023 7:32 AM BAND CUTTING MACHINE OPERATOR IMPRESSION: ACR BI-RADS Category 1: Negative BREAST CANCER SCREENING RECOMMENDATION: Routine yearly mammography beginning at age 40 or as discussed with your provider. The results and recommendations of this examination will be communicated to the patient. Cesar Martinez MD Narrative 08/02/2023 7:32 AM BAND CUTTING MACHINE OPERATOR BILATERAL FULL FIELD DIGITAL SCREENING MAMMOGRAM WITH [...] Most Recently Relevant to Health Maintenance Insurance MERGED WITH [facility] Care Teams Software Analyst Relationship Specialty Start Date End Date No Ref-Primary, Physician PCP - General 08/12/20 Kim Peralta CNM [address] [address] Assigned OBGYN Provider 09/08/23 Leta Valadez PA-C [id number] [place] [address] Assigned PCP 09/16/23 Rubi Erickson, AUGUSTINE [address] [place] [address] Assigned Neuroscience Provider 10/17/23
[2024-11-06 23:55] VITALS: BP 118/74; PULSE 80; RESP 16; TEMP 36.9; O2SAT 97
== END 2024-11-06 23:50 | disposition home or self-care (01) ==
PROVIDERS: Emergency Provider Family Medicine
DX: S93.602A Unspecified sprain of left foot, initial encounter (principal); W10.9XXA Fall (on) (from) unspecified stairs and steps, initial encounter; Y93.89 Activity, other specified
CPT/HCPCS: 73630; 99283; 99284